=== PATIENT | male | born 1980 | race Caucasian/White ===

== ENCOUNTER 2021-05-07 13:09 | Emergency (ER) | payer MEDICARE, MEDICAID, SELFPAY ==
[2021-05-07 13:30] VITALS: BP 144/97; PULSE 76; TEMP 37.4; O2SAT 98
--- NOTE | 2021-05-07 13:45 | DI.CT_ITS ---
Exam(s) CT HEAD WO EXAM: CT HEAD WO CLINICAL HISTORY: fall/head injury. TECHNIQUE: Imaging Protocol: Axial computed tomography images with coronal and sagittal reformatted images were created and reviewed COMPARISON: No exams were available for comparison FINDINGS: Ventricles and Extra axial spaces: Normal in size and morphology for the patient's age. Hemorrhage: None. Cerebral parenchyma: Normal. The patient has a ventriculoperitoneal shunt which enters the calvarium in the posterior right parietal bone. The tip is seen in the left alvarez radiata. Ventricular size is within normal limits. Midline shift: None. Brainstem/Cerebellum: Normal. Calvarium: Normal. There is an old nasal bone fracture. Visualized Paranasal sinuses/Mastoids: Clear. Soft Tissues: Unremarkable. IMPRESSION: 1. No acute intracranial process. 2. Results of this exam have been verbally communicated with provider. RADIATION DOSE DELIVERED: 788.21mGy.cm Total DLP DATA REPOSITORY: All CT scans at this facility are submitted to the National Radiology Data Registry (NRDR) Dose Index Registry (DIR) with the [employer] (ACR). RADIATION OPTIMIZATION: All CT scans at this facility use at least one of these dose optimization te chniques: automated exposure control; mA and/or kV adjustment per patient size (includes targeted exa ms where dose is matched to clinical indication); or iterative reconstruction.
--- NOTE | 2021-05-07 13:53 | W.ED.GENAD ---
Discharge Plan Disposition Patient Disposition: HOME Condition: Stable Discharge Details Clinical Impression: Head injury, Neck pain Primary Care Provider: Unknown,Unknown ED Provider: Codey Reyes Discharge Instructions Instructions: Head Injury (ED), Neck Pain (ED) Additional Instructions: CT imaging and x-ray does not reveal any obvious emergent process. [id number] Tylenol as directed for discomfort. Cool and/or warm compresses every 2 hours for 20 minutes. Gentle stretching as tolerated. Please watch for new or worsening symptoms and return to the ER for any concerns. Otherwise I would recommend reaching out to your primary care provider tomorrow to discuss your ER visit need for outpatient reevaluation. Discharge Data Discharge Date/Time-TO BE ENTERED AT DEPARTURE: 05/07/21 16:34 Medical Decision Making 41-year-old gentleman with history of TBI presents status post mechanical slip and fall striking the top of his head, now with a dull global headache. No LOC. He also reports neck pain, clinically cleared per the Nexus criteria, no clear indication for imaging. Shoulder examination bilaterally unremarkable. Patient is most concerned to his head, although low mechanism a low suspicion for acute renal process, patient would like to move forward with CT imaging. CT imaging of the head is unremarkable per radiology. Discussed findings with patient and caretaker grounds. At this time patient states that he is now concerned more about his neck and would like to proceed with an x-ray. Although extremely low suspicion for acute cervical trauma, will obtain x-ray. X-ray read by radiology as negative. Discussed x-ray findings with patient and caretaker grounds. Patient is relieved. He remains neurologically intact, no additional concerns or complaints. He was offered Tylenol but declines, states he does not want to take any medications. Prefer to go home and take a warm shower. Standard discharge and return precautions provided This documentation was generated using [employer]zillaation system, please disregard any oddities of phrase or misspellings. Imaging Data Radiologic Study: Attestation: I personally reviewed and interpreted this imaging study as follows: Imaging: CT Scan Radiologist's impression: Exam(s) CT HEAD WO EXAM: CT HEAD WO CLINICAL HISTORY: fall/head injury. TECHNIQUE: Imaging Protocol: Axial computed tomography images with coronal and sagittal reformatted images were created and reviewed COMPARISON: No exams were available for comparison FINDINGS: Ventricles and Extra axial spaces: Normal in size and morphology for the patient's age. Hemorrhage: None. Cerebral parenchyma: Normal. The patient has a ventriculoperitoneal shunt which enters the calvarium in the posterior right parietal bone. The tip is seen in the left alvarez radiata. Ventricular size is within normal limits. Midline shift: None. Brainstem/Cerebellum: Normal. Calvarium: Normal. There is an old nasal bone fracture. Visualized Paranasal sinuses/Mastoids: Clear. Soft Tissues: Unremarkable. IMPRESSION: 1. No acute intracranial process. 2. Results of this exam have been verbally communicated with provider. Radiologic Study #2: Attestation: I personally reviewed and interpreted this imaging study as follows: Imaging: X-Ray Radiologist's impression: Exam(s) XR CERVICAL SP FERMIN TRAUMA 2-3V EXAM: XR CERVICAL SP FERMIN TRAUMA 2-3V CLINICAL HISTORY: fall/pain. TECHNIQUE: 2D digital imaging was performed. COMPARISON: No exams were available for comparison FINDINGS: BONES: No fracture or destructive lesion. Vertebral bodies are unremarkable. DISKS: Degenerative changes are seen in the mid and lower cervical spine. ALIGNMENT: There is straightening of the normal cervical lordosis. The odontoid and atlantoaxial articulations are normal. SOFT TISSUE: The patient has a ventriculoperitoneal shunt. The lung apices are clear. IMPRESSION: No acute fractures or subluxations in the cervical spine. HPI General Mode of arrival: ambulatory. Date/Time Provider Initiated Documentation: 05/07/21 13:11. Limitations to Documentation: no limitations. Information obtained by: patient (And caretaker grounds). HPI Narrative: This is a 41-year-old gentleman, past medical history of TBI, presents with a caretaker grounds for evaluation of head injury status post mechanical slip and fall just prior to arrival at the [facility]. Patient states that he struck the top of his head on the wall, denies LOC. He does report a dull global headache, neck pain worse on the left side, and bilateral shoulder pain. He denies visual changes, numbness, tingling, weakness, any other injury, nausea or vomiting. He has not taken any medications for his symptoms. No additional concerns or complaints at this time. Related Data Allergies Allergy/AdvReac Type Severity Reaction Status Date / Time No Known Allergies Allergy Unverified 05/07/21 13:37 General Stated Complaint: HeadInjury AJIT: 4 Review of Systems Constitutional Constitutional: Denies headache(s) Eyes Eyes: Denies change in vision ENT Ears, Nose, Mouth, and Throat: Denies headache(s) and Reports neck pain Gastrointestinal Gastrointestinal: Denies nausea and Denies vomiting Musculoskeletal Musculoskeletal: Denies back pain, Denies arthralgias, Reports neck pain, Denies numbness, Reports stiffness and Denies tingling Neurologic Neurologic: Denies headache(s), Denies numbness and Denies tingling [facility] Social History Smoking/Tobacco Use Status: Never Smoking risk assessment performed?: Yes Alcohol Intake: never Drug use: Never Substance use type: does not use Do you feel safe at home: Yes Do you feel safe in your relationship?: Yes Exam Const General: cooperative, healthy appearing, comfortable and no acute distress Orientation: alert, awake and oriented x3 HENMT Head: normal to inspection, no palpable skull fracture, normocephalic and atraumatic Ears: external ears normal, TM's normal bilaterally and EAC's normal Face and sinus: normal facial exam Mouth: moist mucous membranes Throat: posterior oropharynx normal Eyes General: appearance normal, both eyes and all related structures Alignment and Position: alignment normal Periorbital: periorbital findings normal Eyelids: eyelids normal Conjunctivae: conjunctivae normal Sclera: sclerae normal Pupils: PERRL EOM: EOM intact bilaterally Direct ophthalmoscopy: normal light reflex Neck Neck: normal visual inspection, full ROM, trachea midline, supple and tender Other: Diffuse mild paravertebral discomfort worse on the left. No midline point tenderness. Resp Effort & Inspection: normal respiratory effort and able to speak in complete sentences Auscultation: clear to auscultation bilaterally Cardio Rate: regular rate Rhythm: regular rhythm Back/Spine/Pelvis Back: No back tenderness Skin General skin exam: no rashes or lesions noted Neuro General: patient alert, patient awake, patient oriented x3, moves all extremities and no focal motor deficits Cognition: normal cognition Speech: speech normal Gait: normal gait Motor: muscle tone normal throughout Sensory Exam: no sensory deficits noted Extrem General: normal to inspection, full ROM and capillary refill normal Psych Appearance: grossly normal Mental Status: mental status grossly normal Course Vital Signs Vital signs: Vital Signs Temperature 37.4 C 05/07/21 13:30 Pulse 76 05/07/21 13:30 Blood Pressure 144/97 H 05/07/21 13:30 Pulse Oximetry 98 05/07/21 13:30 Temperature 37.4 C 05/07/21 13:30 Temperature Source Temporal Artery Scan 05/07/21 13:30 Pulse 76 05/07/21 13:30 Respiratory Effort Non-Labored 05/07/21 13:34 Respiratory Depth Normal 05/07/21 13:34 Respiratory Pattern Normal 05/07/21 13:34 Blood Pressure 144/97 H 05/07/21 13:30 Blood Pressure Position Sitting 05/07/21 13:30 Pulse Oximetry 98 05/07/21 13:30 Oxygen Delivery Method Room Air 05/07/21 13:30 Oxygen Flow Rate 0 05/07/21 13:30 Pain Level 2 05/07/21 13:30
--- NOTE | 2021-05-07 13:55 | NUR.NOTE ---
unable to get med list from provider and caregiver does not have it on them.
--- NOTE | 2021-05-07 14:45 | DI.RAD_ITS ---
Exam(s) XR CERVICAL SP FERMIN TRAUMA 2-3V EXAM: XR CERVICAL SP FERMNI TRAUMA 2-3V CLINICAL HISTORY: fall/pain. TECHNIQUE: 2D digital imaging was performed. COMPARISON: No exams were available for comparison FINDINGS: BONES: No fracture or destructive lesion. Vertebral bodies are unremarkable. DISKS: Degenerative changes are seen in the mid and lower cervical spine. ALIGNMENT: There is straightening of the normal cervical lordosis. The odontoid and atlantoaxial art iculations are normal. SOFT TISSUE: The patient has a ventriculoperitoneal shunt. The lung apices are clear. IMPRESSION: No acute fractures or subluxations in the cervical spine. DATA REPOSITORY: RADIATION DOSE DELIVERED:
== END 2021-05-07 16:34 | disposition home or self-care (01) ==
PROVIDERS: Emergency Provider Physician Assistant
DX: S09.8XXA Other specified injuries of head, initial encounter (principal); M54.2 Cervicalgia; W01.198A Fall on same level from slipping, tripping and stumbling with subsequent striking against other object, initial encounter
CPT/HCPCS: 99284; 70450; 72040; 99283

== ENCOUNTER 2021-11-16 12:10 | Emergency (ER) | payer MEDICARE, MEDICAID, SELFPAY ==
[2021-11-16] VITALS (16 sets, daily range): BP systolic 129–153; BP diastolic 85–99; PULSE 64–77; RESP 18; TEMP 36.7–36.9; O2SAT 97–100
--- NOTE | 2021-11-16 12:15 | DI.CT_ITS ---
Exam(s) CT HEAD CERVICAL SPINE WO EXAM: CT HEAD CERVICAL SPINE WO CLINICAL HISTORY: seizure then fell down hill. TECHNIQUE: Imaging Protocol: Axial computed tomography images with coronal and sagittal reformatted images were created and reviewed COMPARISON: CT CT HEAD WO from 05/07/2021 FINDINGS: Head CT Ventricles and Extra axial spaces: Normal in size and morphology for the patient's age. Hemorrhage: None. Cerebral parenchyma: Normal. The PT shunt tubing unchanged in position. Midline shift: None. Brainstem/Cerebellum: Normal. Calvarium: Defect right parietal skull through which BP shunt tubing enters. Small chronic defect hi gh right frontal region. Visualized Paranasal sinuses/Mastoids: Clear. Bones: Old nasal fractures. Cervical Spine CT BONES: Vertebral body heights are maintained. Alignment is normal. There is no evidence of acute frac ture. Degenerative disc changes and facet degenerative changes are seen at C4-5 through C6-7. . SOFT TISSUES: No paraspinal hematoma. The airway appears intact. Right-sided [employer] shunt tubing. IMPRESSION: Head CT: No acute abnormality.Ventriculoperitoneal shunt, unchanged in position. C-spine CT: Degenerative changes, no acute abnormality. RADIATION DOSE DELIVERED: 1,523.54mGy.cm Total DLP DATA REPOSITORY: All CT scans at this facility are submitted to the National Radiology Data Registry (NRDR) Dose Index Registry (DIR) with the [employer] (ACR). RADIATION OPTIMIZATION: All CT scans at this facility use at least one of these dose optimization te chniques: automated exposure control; mA and/or kV adjustment per patient size (includes targeted exa ms where dose is matched to clinical indication); or iterative reconstruction.
--- NOTE | 2021-11-16 12:28 | ED.GENADUL_ITS ---
Discharge Plan Disposition Patient Disposition: HOME Condition: Stable Discharge Details Clinical Impression: Breakthrough seizure, Fall, Acute head trauma, Traumatic injury of neck Primary Care Provider: Unknown,Unknown ED Provider: Jossie Zamora Home Meds and New Rx's Prescriptions: No Action prazosin 1 mg Capsule 1 mg PO DAILY 0RF zonisamide 100 mg Capsule 300 mg PO TID 0RF ergocalciferol (vitamin D2) [Vitamin D2] 1,250 mcg (50,000 unit) Capsule 1,250 mcg PO DIRECTED 0RF Rx Instructions: twice a week vitamin E 400 unit Capsule 400 unit PO DAILY 0RF tinidazole 500 mg Tablet 2,000 mg PO DAILY 0RF ICaps 3,927-2-282-75 [id number]-unit Tablet Extended Release 1 tab PO DAILY 0RF alpha lipoic acid-biotin 300 mg- 333 mcg Capsule 1 cap PO BID 0RF cannabidiol 100 mg/mL Solution PO TID 0RF Discharge Instructions Instructions: Head Injury (ED), Recurrent Seizures in Adults (ED) Additional Instructions: Imaging is reassuring today, no acute abnormalities. You will likely be sore from the fall and have muscular discomfort over the next few days. Please encourage hydration, gentle stretching. You may use Tylenol or Ibuprofen for discomfort. Heat or ice. Please call primary care to schedule appointment in one week for reevaluation after fall and to discuss your breakthrough seizures. If you develop increased pain, fevers/chills, weakness, sensation changes, confusion or othre new/worsening symptoms please seek care urgently once again. Discharge Data Discharge Date/Time-TO BE ENTERED AT DEPARTURE: 11/16/21 14:21 Medical Decision Making Patient is a pleasant 41-year-old male, brought in via EMS, with chief complaint of seizure and fall downhill. Patient was reported to have a witnessed seizure at the top of the hill when he fell backwards striking his head falling down a hill. Patient reports that initially he had a headache, is now primarily concerned about neck and back pain. No nausea or vomiting. Patient was given intranasal midazolam. Patient reports that he is currently feeling slightly tired which is difficult for him in the postictal period. However, he continues to endorse neck and back pain with a fall. Head is improved. Patient was collared by EMS prior to arrival. Patient denies any numbness or tingling. Is not noticed any weakness. Was not incontinent. Patient daycare provider is at bedside, [place]. He reports that the health is at a significant grade and the patient was standing facing up the hill and fell backwards striking his head. He denies any missed dose of medication. He has his new medications with him. Feels that the patient is back to his baseline. On exam, patient appears nontoxic. He is collared and immobilized. He does have some posterior head pain on palpation. He does have nonfocal C-spine tenderness as well. No midline thoracic discomfort. Does have lumbar spine pain but patient reports that this is chronic and unchanged. No abdominal discomfort. He does have pain with lateral compression of the chest wall but this too sounds to be chronic in nature. No saddle paresthesias. 5 of 5 strength in all extremities. Pulses in all extremities. Patient does have baseline cognitive delay, after history is slightly limited. I am concerned given the mechanism as well as the concern discomfort for potential fracture, particularly in C-spine based on tenderness, ribs. His mechanism also has any concern for head injury. Will obtain CT scan baseline labs. Will give IV Tylenol to help with discomfort. Ultrasound guidance IV was placed by myself in right AC. FINDINGS: Head CT Ventricles and Extra axial spaces: Normal in size and morphology for the patient's age. Hemorrhage: None. Cerebral parenchyma: Normal. The PT shunt tubing unchanged in position. Midline shift: None. Brainstem/Cerebellum: Normal. Calvarium: Defect right parietal skull through which BP shunt tubing enters.? Small chronic defect high right frontal region. Visualized Paranasal sinuses/Mastoids: Clear. Bones: Old nasal fractures. Cervical Spine CT BONES: Vertebral body heights are maintained. Alignment is normal. There is no evidence of acute fracture. Degenerative disc changes and facet degenerative changes are seen at C4-5 through C6-7.? . SOFT TISSUES: No paraspinal hematoma. The airway appears intact. Right-sided SHIFT COORDINATOR shunt tubing. IMPRESSION: Head CT: No acute abnormality.Ventriculoperitoneal shunt, unchanged in position. C-spine CT: Degenerative changes, no acute abnormality. FINDINGS: CHEST: Soft tissues: Bilateral gynecomastia.? Severe shows cyst lower left lateral chest wall. Tracheobronchial tree: Patent where visualized. Mediastinum and Shaunna: No dominant adenopathy or fluid collection. Pulmonary parenchyma: No consolidation or dominant measurable mass. Pleura: No effusion or pneumothorax. Lymph nodes: Within normal limits. Aorta: Thoracic portion non-dilated. Heart: Normal size. Bones: Unremarkable for age.? No evidence of rib or spine fracture.? No lytic or blastic lesions. ABDOMEN: Liver: Normal density. No measurable mass. Gallbladder and biliary tract: No radiodense calculus or dilation. Pancreas: Normal density, no abnormal calcifications or inflammatory process. Spleen: Normal. Kidneys: Normal size, contour and axis. No radiodense stones or obstructive uropathy. No masses seen. Adrenal glands: No masses seen. Aorta: Abdominal portion non-dilated. Lymph nodes: Within normal limits. Soft tissues: Unremarkable.? SHIFT COORDINATOR shunt tubing. PELVIS:? Bladder: Distended. no gross wall thickening. ? No calcification or mass. Bowel: No obstruction or bowel wall thickening. Peritoneal cavity: No ascites, collection or mesenteric inflammatory response. Bones: Bilateral L5 spondylolysis which appears chronic.? Slight spondylolisthesis.? Disc spaces well maintained.? Small endplate osteophytes throughout the lumbar spine.? Reproductive organs: Within normal limits. IMPRESSION: No acute abnormality in the chest, abdomen or pelvis..? Discussed findings with patient and chiropractic care. He reports he is feeling well. Collar removed, no midline tenderness, full ROM without pain. Spoke with patients aunt Jordyn, who is his gardian, . We discussed current condition, imaging, break through seizure. She advised that patient is followed very closely by his PCP for his seizures. Not unusual to have breakthrough seizure, has not had one in the past few weeks. They will continue to monitor him closely at home. Discussed brain rest. Encouraged hydration. Return precautions discussed. All of their quesitons and concerns were addressed,t hey are in agreement with this plan. HPI General Date/Time Provider Initiated Documentation: 11/16/21 12:13 . Limitations to Documentation: no limitations . Information obtained by: patient, family (nursing home director), EMS and RN notes reviewed . History of Present Illness 41 year old M presents to the emergency department with the chief complaint of seizure, fall with head injury, described as moderate, Quality is described as aching, and is localized to the head. Patient reports no radiation. Patient started experiencing this minute(s) and it has been now resolved (feeling improved, seizure resolved- patient given IN midazolam). improves with No relieving factors improve symptom(s), No exacerbating factors reported . Patient notes no other symptoms. and headaches; denies confusion, chest pain, fever/chills, loss of appetite, nausea/vomiting, rash, shortness of breath and weakness. Patient did receive the following treatments prior to arrival, none Related Data Home Medications Medication Instructions Recorded Confirmed alpha lipoic acid 300 mg-biotin 1 cap PO BID 11/16/21 11/16/21 333 mcg capsule cannabidiol 100 mg/mL oral solution mg PO TID 11/16/21 ergocalciferol (vitamin D2) 1,250 1,250 mcg PO DIRECTED 11/16/21 11/16/21 mcg (50,000 unit) capsule (Vitamin D2) prazosin 1 mg capsule 1 mg PO DAILY 11/16/21 11/16/21 tinidazole 500 mg tablet 2,000 mg PO DAILY 11/16/21 11/16/21 [id number]-fqmicoc-min 1 tab PO DAILY 11/16/21 11/16/21 3,300 unit-5 mg-200mg-75 unit tablet ER (ICaps) vitamin E 400 unit capsule 400 unit PO DAILY 11/16/21 11/16/21 zonisamide 100 mg capsule 300 mg PO TID 11/16/21 11/16/21 Allergies Allergy/AdvReac Type Severity Reaction Status Date / Time clonidine Allergy Unverified 11/16/21 14:04 General Stated Complaint: Trauma AJIT: 3 Review of Systems Constitutional Constitutional: Reports as per HPI, Denies chills, Denies fever(s), Denies frequent falls, Reports headache(s) and Denies weakness Eyes Eyes: Reports as per HPI, Denies blurry vision, Denies change in vision, Denies loss of vision and Denies photophobia ENT Ears, Nose, Mouth, and Throat: Denies vertigo, Reports headache(s) and Denies neck pain Cardiovascular Cardiovascular: Reports as per HPI, Denies chest pain, Denies lightheadedness, Denies radiating jaw, neck or arm pain, Denies dyspnea and Denies dyspnea on exertion Respiratory Respiratory: Reports as per HPI, Denies chest congestion, Denies cough, Denies dyspnea, Denies dyspnea on exertion, Denies stridor and Denies wheezing Gastrointestinal Gastrointestinal: Reports as per HPI, Denies abdominal pain, Denies change in bowel habits, Denies nausea and Denies vomiting Genitourinary Genitourinary: Reports system reviewed and no additional complaints, except as documented (denies change in urinary habits) Musculoskeletal Musculoskeletal: Reports as per HPI, Denies back pain, Denies myalgias, Denies muscle cramps, Denies neck pain and Denies numbness Integumentary/Breasts Skin/Breast: Reports as per HPI and Denies rash Neurologic Neurologic: Reports as per HPI, Denies abnormal speech, Denies confusion, Denies vertigo, Denies frequent falls, Reports headache(s), Denies localized weakness, Denies loss of vision, Denies numbness, Reports convulsions, Denies sensory deficit and Denies weakness Psychiatric Psychiatric: Denies confusion Allergic/Immunologic Allergic/Immunologic: Denies wheezing PFSH All Active Problems (Updated 11/16/21 @ 14:08 by KOURTNEY Michael) Head injury (Acute) Neck pain (Acute) Breakthrough seizure (Acute) Fall (Acute) Acute head trauma (Acute) Traumatic injury of neck (Acute) Social History Smoking/Tobacco Use Status: Never Smoking risk assessment performed?: Yes Alcohol Intake: never Drug use: Never Substance use type: does not use Do you feel safe at home: Yes Do you feel safe in your relationship?: Yes Exam Const General: cooperative, healthy appearing, uncomfortable, no acute distress, well developed and well groomed Nutritional Appearance: average body habitus and well nourished Orientation: alert, awake and oriented x3 HENMT Head: normal to inspection, no palpable skull fracture, normocephalic and atraumatic Ears: hearing grossly normal bilaterally, external ears normal and TM's normal bilaterally General nose exam: external nose normal Mouth: oral mucosae normal and moist mucous membranes Throat: posterior oropharynx normal Eyes General: appearance normal, both eyes and all related structures Alignment and Position: alignment normal Periorbital: periorbital findings normal Eyelids: eyelids normal Sclera: sclerae normal Cornea: corneas normal Pupils: PERRL EOM: EOM intact bilaterally Neck Neck: normal visual inspection, full ROM, no lymphadenopathy and no meningeal signs Resp Effort & Inspection: normal respiratory effort, able to speak in complete sentences and no respiratory distress Auscultation: clear to auscultation bilaterally, no rales, no rhonchi and no wheezes Cardio Rate: regular rate Rhythm: regular rhythm Heart Sounds: S1 normal and S2 normal GI Inspection: normal to inspection and non-distended Palpation: soft, no hepatosplenomegaly, not firm, no guarding, not rigid and nontender Percussion: normal to percussion Auscultation: normal bowel sounds Back/Spine/Pelvis Cervical Spine: normal cervical lordosis and cervical ROM normal Skin General skin exam: no rashes or lesions noted Neuro General: patient alert, patient awake and patient oriented x3 Cranial Nerves: CN's II-XI intact bilaterally Cognition: normal cognition Speech: speech normal Gait: normal gait Motor: muscle tone normal throughout, strength 5/5 throughout, no pronator drift, no movement abnormalities noted and no fasciculations Sensory Exam: no sensory deficits noted Coordination: [id number] test normal and [id number] test normal Extrem General: normal to inspection, capillary refill normal, no pedal edema and no calf tenderness Psych Appearance: grossly normal and well kempt Mental Status: mental status grossly normal Speech and Movement: speech and movement normal Course Vital Signs Vital signs: Vital Signs Temperature 36.9 C 11/16/21 12:15 Pulse 68 11/16/21 12:15 Respiratory Rate 18 11/16/21 12:15 Blood Pressure 141/91 H 11/16/21 12:15 Pulse Oximetry 100 11/16/21 12:15 Temperature 36.9 C 11/16/21 12:15 Temperature Source Temporal Artery Scan 11/16/21 12:15 Pulse 68 11/16/21 12:15 Respiratory Rate 18 11/16/21 12:15 Blood Pressure 141/91 H 11/16/21 12:15 Blood Pressure Position Supine 11/16/21 12:15 Pulse Oximetry 100 11/16/21 12:15 Oxygen Delivery Method Room Air 11/16/21 12:15 Oxygen Flow Rate 0 11/16/21 12:15
[2021-11-16 12:53] LABS: Abs Immature Grans 0.02 10^3/uL (0.0-0.06); Absolute Basophil Count 0.01 10^3/uL (0.0-0.2); Absolute Lymphocyte Count 1.82 10^3/uL (1.2-3.4); Absolute Monocyte Count 0.73 10^3/uL (0.1-0.8); Basophils % 0.2; HCT 44.1 % (40.0-50.0); Immature Grans % 0.3; Lymphocytes % 27.7; MCH 31.4 pg (27.0-33.0); MCV 92.3 fL (80-95); MPV 8.8 fL (8.0-11.0); Monocytes % 11.1; Neutrophils % 60.7; Platelet Count 317 10^3/uL (130-400); RBC 4.78 10^6/uL (4.36-5.78); RDW 11.9 % (11.8-14.1); WBC 6.58 10^3/uL (4.4-10.8)
--- NOTE | 2021-11-16 13:09 | DI.CT_ITS ---
Exam(s) CT CHEST/ABD/PEL W EXAM: CT CHEST/ABD/PEL W CLINICAL HISTORY: seizure then fell down hill. TECHNIQUE: Imaging Protocol: Axial computed tomography images with coronal and sagittal reformatted images were created and reviewed CONTRAST MATERIAL: Intravenous: Omnipaque 350 Contrast volume:100 ml Oral: no COMPARISON: No exams were available for comparison FINDINGS: CHEST: Soft tissues: Bilateral gynecomastia. Severe shows cyst lower left lateral chest wall. Tracheobronchial tree: Patent where visualized. Mediastinum and Shaunna: No dominant adenopathy or fluid collection. Pulmonary parenchyma: No consolidation or dominant measurable mass. Pleura: No effusion or pneumothorax. Lymph nodes: Within normal limits. Aorta: Thoracic portion non-dilated. Heart: Normal size. Bones: Unremarkable for age. No evidence of rib or spine fracture. No lytic or blastic lesions. ABDOMEN: Liver: Normal density. No measurable mass. Gallbladder and biliary tract: No radiodense calculus or dilation. Pancreas: Normal density, no abnormal calcifications or inflammatory process. Spleen: Normal. Kidneys: Normal size, contour and axis. No radiodense stones or obstructive uropathy. No masses seen. Adrenal glands: No masses seen. Aorta: Abdominal portion non-dilated. Lymph nodes: Within normal limits. Soft tissues: Unremarkable. FORENSIC INVESTIGATOR shunt tubing. PELVIS: Bladder: Distended. no gross wall thickening. No calcification or mass. Bowel: No obstruction or bowel wall thickening. Peritoneal cavity: No ascites, collection or mesenteric inflammatory response. Bones: Bilateral L5 spondylolysis which appears chronic. Slight spondylolisthesis. Disc spaces well maintained. Small endplate osteophytes throughout the lumbar spine. Reproductive organs: Within normal limits. IMPRESSION: No acute abnormality in the chest, abdomen or pelvis.. RADIATION DOSE DELIVERED: 1,079.26mGy.cm Total DLP DATA REPOSITORY: All CT scans at this facility are submitted to the National Radiology Data Registry (NRDR) Dose Index Registry (DIR) with the [employer] ([employer]). RADIATION OPTIMIZATION: All CT scans at this facility use at least one of these dose optimization te chniques: automated exposure control; mA and/or kV adjustment per patient size (includes targeted exa ms where dose is matched to clinical indication); or iterative reconstruction.
[2021-11-16 13:14] LABS: ALT 34 U/L (16-63); AST 23 U/L (15-37); Albumin 3.9 g/dL (3.4-5.0); Alkaline Phosphatase 88 U/L (46-116); Anion Gap 6.4 mmol/L (3-11); BUN 8 mg/dL (7-18); Bilirubin, Total 0.3 mg/dL (0.2-1.0); CO2 27.6 mmol/L (21.0-32.0); CREATININE 0.9 mg/dL (0.70-1.30); Calcium 8.4 mg/dL (8.5-10.1); Chloride 102 mmol/L (98-107); Creatine Kinase 109 U/L (39-308); Glucose 88 mg/dL (74-106); Magnesium 2.4 mg/dL (1.8-2.4); Potassium 4.3 mmol/L (3.5-5.1); Sodium 136 mmol/L (136-145); TSH (W/Ref FT4) 2.48 uIU/mL (0.36-3.74); Total Protein 7.5 g/dL (6.4-8.2)
[2021-11-16] MEDS: Lactated Ringers 1,000 ML 1000 ML IV (13:20)
[2021-11-16] MEDS: Normal Saline Flush 10 ML SYR IVP (13:20)
[2021-11-16] MEDS: ACETAMINOPHEN 1,000 MG/100 ML BTL 400 MG IVPB (13:20)
[2021-11-16] MEDS: Omnipaque 350 MG/ML 100 ML BTL IJ (13:24)
[2021-11-16 14:00] LABS: Bilirubin Negative (Negative); Blood Negative (Negative); Clarity Clear (Clear); Glucose Negative (Negative); Ketones Negative (Negative); Leukocyte Esterase Negative (Negative); Nitrite Negative (Negative); Specific Gravity <= 1.005 (1.005-1.025); Urobilinogen 0.2 EU/dL (Up TO 0.2)
== END 2021-11-16 14:21 | disposition home or self-care (01) ==
PROVIDERS: Emergency Provider Physician Assistant
DX: G40.909 Epilepsy, unspecified, not intractable, without status epilepticus (principal); S09.8XXA Other specified injuries of head, initial encounter; S19.89XA Other specified injuries of other specified part of neck, initial encounter; W17.81XA Fall down embankment (hill), initial encounter
CPT/HCPCS: 36415; 74177; 80053; 82550; 96361; 96374; 99285; 70450; 71260; 72125; 81003; 83735; 84443; 85025; 99284; J0131; J3490

== ENCOUNTER → 2022-03-20 13:00 | Outpatient (CLI) | payer MEDICARE, MEDICAID, SELFPAY ==
--- NOTE | 2022-03-20 | DI.RAD_ITS ---
Exam(s) XR RIBS LT W PA LAT CHEST EXAM: XR RIBS LT W PA LAT CHEST CLINICAL HISTORY: PATIENT FELL STRIKING LEFT SIDE OF RIBS, CONCERN FOR UNDERLYING FX TECHNIQUE: COMPARISON: No exams were available for comparison FINDINGS: PA and lateral chest and three views of the left ribs were obtained. Note is made of ventriculoperit arcos shunt. I suspect this is fractured at the level of the diaphragm. Lungs are clear. Cardiac s ize is within normal limits. No rib fracture identified. IMPRESSION: No evidence of acute process. RADIATION DOSE DELIVERED: Total DLP
--- NOTE | 2022-03-20 13:25 | DI.RAD_ITS ---
Exam(s) XR SHOULDER RT COMPLETE 2+V EXAM: XR SHOULDER RT COMPLETE 2+V CLINICAL HISTORY: PAIN IN RIGHT SHOULDER TECHNIQUE: COMPARISON: No exams were available for comparison FINDINGS: Five views were obtained. Ventricular peritoneal shunt with probable shunt discontinuity in the uppe r thorax. No evidence of acute bony fracture or dislocation. IMPRESSION: RADIATION DOSE DELIVERED: Total DLP
--- NOTE | 2022-03-20 13:50 | DI.VRAD_ITS ---
PROCEDURE INFORMATION: Exam: XR Right Shoulder Exam date and time: 03/20/2022 1:20 PM Age: 41 years old Clinical indication: Pain; Shoulder; Right TECHNIQUE: Imaging protocol: Radiologic exam of the Right shoulder. Views: 2 or more views. COMPARISON: CT CHEST/ABD/PEL W 11/16/2021 1:07 PM FINDINGS: Tubes, catheters and devices: Shunt tubing overlies the right chest and soft tissues of the right neck Bones/joints: There is no evidence of acute fracture.There is no evidence of malalignment or dislocation. Soft tissues: Normal. IMPRESSION: There is no evidence of acute fracture.There is no evidence of malalignment or dislocation. Dictated and Authenticated by: Chidi Mercado MD. Ordering:MANASA Naidu MD
--- NOTE | 2022-03-20 13:56 | DI.VRAD_ITS ---
PROCEDURE INFORMATION: Exam: XR Left Ribs Exam date and time: 03/20/2022 1:44 PM Age: 41 years old Clinical indication: Injury or trauma; Fall; Blunt trauma (contusions or hematomas); Rib area, left side; Injury details: Patient fell striking left side of ribs, concern for underlying FX TECHNIQUE: Imaging protocol: Radiologic exam of the Left ribs. Views: 2 views. COMPARISON: CT CHEST/ABD/PEL W 11/16/2021 1:07 PM FINDINGS: Bones/joints: Normal. Soft tissues: Normal. IMPRESSION: No acute findings. PROCEDURE INFORMATION: Exam: XR Chest Exam date and time: 03/20/2022 1:44 PM Age: 41 years old Clinical indication: Injury or trauma; Fall; Blunt trauma (contusions or hematomas); Rib area, left side; Injury details: Patient fell striking left side of ribs, concern for underlying FX TECHNIQUE: Imaging protocol: Radiologic exam of the chest. Views: 2 views. COMPARISON: CT CHEST/ABD/PEL W 11/16/2021 1:07 PM FINDINGS: Tubes, catheters and devices: Shunt tubing overlies the right chest. Lungs: Unremarkable. No consolidation. Pleural spaces: Unremarkable. No pleural effusion. No pneumothorax. Heart/Mediastinum: Unremarkable. No cardiomegaly. Bones/joints: Unremarkable. IMPRESSION: No acute process Dictated and Authenticated by: Chidi Mercado MD. Ordering:MANASA Naidu MD
== END ==
PROVIDERS: Visit Provider Physician Assistant Medical
DX: M25.511 Pain in right shoulder (principal); R07.81 Pleurodynia; Z98.2 Presence of cerebrospinal fluid drainage device
CPT/HCPCS: 71046; 71100; 73030

== ENCOUNTER 2022-03-20 13:36 | Outpatient (REF) | payer MEDICARE, MEDICAID, SELFPAY ==
[2022-03-20 16:24] LABS: Abs Immature Grans 0.02 10^3/uL (0.0-0.06); Absolute Lymphocyte Count 1.97 10^3/uL (1.2-3.4); Absolute Monocyte Count 0.77 10^3/uL (0.1-0.8); Absolute Neutrophil Count 5.82 10^3/uL (1.2-6.7); HCT 44.4 % (40.0-50.0); Immature Grans % 0.2; MCH 30.7 pg (27.0-33.0); MCHC 33.8 % (32.0-36.0); MCV 91 fL (80-95); MPV 9.4 fL (8.0-11.0); Neutrophils % 67.8; Platelet Count 318 10^3/uL (130-400); RBC 4.89 10^6/uL (4.36-5.78); RDW-SD 39.8 fL; WBC 8.58 10^3/uL (4.4-10.8)
[2022-03-20 16:45] LABS: ALT 26 U/L (16-63); AST 17 U/L (15-37); Albumin 3.6 g/dL (3.4-5.0); Alkaline Phosphatase 99 U/L (46-116); Anion Gap 7.8 mmol/L (3-11); BUN 11 mg/dL (7-18); Bilirubin, Total 0.2 mg/dL (0.2-1.0); CO2 28.2 mmol/L (21.0-32.0); CREATININE 0.9 mg/dL (0.70-1.30); Calcium 8.7 mg/dL (8.5-10.1); Chloride 104 mmol/L (98-107); Glucose 106 mg/dL (74-106); Potassium 4.2 mmol/L (3.5-5.1); Sodium 140 mmol/L (136-145); Total Protein 6.8 g/dL (6.4-8.2)
== END 2022-03-20 13:37 | disposition home or self-care (01) ==
LOC: LBN 13:36
PROVIDERS: Visit Provider Physician Assistant Medical
DX: R55 Syncope and collapse (principal)
CPT/HCPCS: 80053; 85025

== ENCOUNTER 2023-09-05 12:48 | Emergency (ER) | payer MEDICARE, MEDICAID, SELFPAY ==
--- NOTE | 2023-09-05 12:45 | DI.CT_ITS ---
Exam(s) CT HEAD WO EXAM: CT HEAD WO CLINICAL HISTORY: fall. TECHNIQUE: Imaging Protocol: Axial computed tomography images with coronal and sagittal reformatted images were created and reviewed COMPARISON: CT CT HEAD CERVICAL SPINE WO from 11/16/2021 FINDINGS: There are no skull fractures. There is no fluid in the visualized paranasal sinuses. Right parietal entrance KENNEL AIDE shunt distal tip is unchanged in position, across the midline in the left periventricular white matter, unchanged from prior study of October 2021. There is no evidence of intracranial hemorrhage, intra or extra-axial. There is no blood within the ventricular system nor within the basal cisterns. No evidence of infarct. IMPRESSION: As above but no acute intracranial findings. Discussed by phone with ER physician. RADIATION DOSE DELIVERED: 842.09mGy.cm Total DLP DATA REPOSITORY: All CT scans at this facility are submitted to the National Radiology Data Registry (NRDR) Dose Index Registry (DIR) with the [employer] (ACR). RADIATION OPTIMIZATION: All CT scans at this facility use at least one of these dose optimization te chniques: automated exposure control; mA and/or kV adjustment per patient size (includes targeted exa ms where dose is matched to clinical indication); or iterative reconstruction.
[2023-09-05 12:52] VITALS: BP 165/112; PULSE 95; RESP 18; TEMP 36.9; O2SAT 95
--- NOTE | 2023-09-05 13:31 | ED.GENADUL_ITS ---
HPI General Date/Time Provider Initiated Documentation: 09/05/23 12:57 . Limitations to Documentation: no limitations . Information obtained by: patient . HPI Narrative: 43-year-old gentleman with past medical history of TBI, CERTIFIED TECHNICIAN shunt presents for evaluation after fall. Patient states that he slipped on the ice on the stairs and fell and hit his head. He states that he is unsure if he lost consciousness. He reports some soreness. He denies any headache. Denies any visual change. Denies any vomiting. This occurred just prior to arrival. No medications given prior to arrival. He states he does have a history of a CERTIFIED TECHNICIAN shunt, but the shunt is no longer functional. Related Data Home Medications Medication Instructions Recorded Confirmed alpha lipoic acid 300 mg-biotin 1 cap PO BID 11/16/21 11/16/21 333 mcg capsule cannabidiol 100 mg/mL oral solution mg PO TID 11/16/21 ergocalciferol (vitamin D2) 1,250 1,250 mcg PO DIRECTED 11/16/21 11/16/21 mcg (50,000 unit) capsule (Vitamin D2) prazosin 1 mg capsule 1 mg PO DAILY 11/16/21 11/16/21 tinidazole 500 mg tablet 2,000 mg PO DAILY 11/16/21 11/16/21 [id number]-C4-S-U-ylkvwp-mbcalwk-min 1 tab PO DAILY 11/16/21 11/16/21 3,300 unit-5 mg-200mg-75 unit tablet ER (ICaps) vitamin E 268 mg (400 unit) capsule 400 unit PO DAILY 11/16/21 11/16/21 zonisamide 100 mg capsule 300 mg PO TID 11/16/21 11/16/21 Allergies Allergy/AdvReac Type Severity Reaction Status Date / Time clonidine Allergy Unverified 11/16/21 14:04 General Stated Complaint: Fall/Non TraumaCriteria AJIT: 3 Exam Narrative Exam Narrative: Review of Systems: All systems reviewed & are unremarkable except as noted in HPI and below Well-developed, no acute distress NCAT, nontender, no skull deformity Right parietal CERTIFIED TECHNICIAN shunt noted PERRL, normal conjunctiva RRR Unlabored respiratory effort Nondistended abdomen Left shoulder, nontender, full range of motion, no deformity No rashes or lesions. no focal neurologic deficits Appropriate mood and affect Course Vital Signs Vital signs: Vital Signs Temperature 36.9 C 09/05/23 12:52 Pulse 95 H 09/05/23 12:52 Respiratory Rate 18 09/05/23 12:52 Blood Pressure 165/112 H 09/05/23 12:52 Pulse Oximetry 95 09/05/23 12:52 Temperature 36.9 C 09/05/23 12:52 Temperature Source Skin 09/05/23 12:52 Pulse 95 H 09/05/23 12:52 Respiratory Rate 18 09/05/23 12:52 Blood Pressure 165/112 H 09/05/23 12:52 Blood Pressure Position Sitting 09/05/23 12:52 Pulse Oximetry 95 09/05/23 12:52 Oxygen Delivery Method Room Air 09/05/23 12:52 Oxygen Flow Rate 0 09/05/23 12:52 Pain Level 10 09/05/23 12:52 Medical Decision Making Emergent evaluation of head trauma. Initial differential includes contusion, intracranial injury. Concussive syndrome. Patient slipped on ice. No prodromal or preceding symptoms concerning for syncopal episode. Has a normal neurologic exam and no significant signs of trauma. A CT scan was performed. There is no acute traumatic process. He otherwise has a normal examination. Patient is stable for discharge home. Medical Records Medical records reviewed: Yes I reviewed the patient's medical records. Quality:[facility] Health Related Social Needs: No Data to Display [facility] All Active Problems Neck pain (Acute) Head injury (Acute) Social History Smoking/Tobacco Use Status: Never Smoking risk assessment performed?: Yes Alcohol Intake: never Drug use: Never Substance use type: does not use Do you feel safe at home: Yes Do you feel safe in your relationship?: Yes Discharge Plan Disposition Patient Disposition: Home Condition: Stable Discharge Details Clinical Impression: Head injury Primary Care Provider: Unknown,Unknown ED Provider: Connie Suarez Home Meds and New Rx's Prescriptions: No Action prazosin 1 mg Capsule 1 mg PO DAILY zonisamide 100 mg Capsule 300 mg PO TID ergocalciferol (vitamin D2) [Vitamin D2] 1,250 mcg (50,000 unit) Capsule 1,250 mcg PO DIRECTED Rx Instructions: twice a week vitamin E 400 unit Capsule 400 unit PO DAILY tinidazole 500 mg Tablet 2,000 mg PO DAILY ICaps 3,032-2-494-75 btet-ry-wg-unit Tablet Extended Release 1 tab PO DAILY alpha lipoic acid-biotin 300 mg- 333 mcg Capsule 1 cap PO BID cannabidiol 100 mg/mL Solution PO TID Discharge Instructions Instructions: Head Injury (ED) Additional Instructions: may be a little sore, ok to take tylenol or motrin Discharge Data Discharge Date/Time-TO BE ENTERED AT DEPARTURE: 09/05/23 13:45
== END 2023-09-05 13:45 | disposition home or self-care (01) ==
LOC: ER 13:41
PROVIDERS: Emergency Provider Emergency Medicine
DX: M25.512 Pain in left shoulder (principal); M54.9 Dorsalgia, unspecified; R51.9 Headache, unspecified; S09.90XA Unspecified injury of head, initial encounter; W00.1XXA Fall from stairs and steps due to ice and snow, initial encounter
CPT/HCPCS: 99284; 70450; 99283

== ENCOUNTER 2023-12-25 22:00 | Emergency (ER) | payer MEDICARE, MEDICAID, SELFPAY ==
[2023-12-25 21:58] VITALS: BP 134/91; PULSE 82; RESP 18; TEMP 36.6; O2SAT 94
--- NOTE | 2023-12-25 22:00 | DI.CT_ITS ---
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 TECHNIQUE: Imaging Protocol: Axial computed tomography images with coronal and sagittal reformatted images were created and reviewed COMPARISON: CT CT HEAD WO from 09/05/2023 FINDINGS: Ventricles and Extra axial spaces: Ventriculoperitoneal shunt again noted, entering from the right pa rietal lesion and extending across the midline with the tip appearing to project in the region of the left basal ganglia. Findings appear unchanged from prior. Ventricles not dilated. Unchanged in ap pearance from prior. Hemorrhage: None. Cerebral parenchyma: No significant atrophy. Small area low attenuation in the left frontal lobe, a djacent to the ventricle, unchanged. Midline shift: None. Brainstem/Cerebellum: Normal. Calvarium: Craniotomy defects right frontal and right parietal regions. Visualized Paranasal sinuses/Mastoids: Clear. Cerumen in both external auditory canals. IMPRESSION: No acute abnormality.No change in position of ventricular peritoneal shunt. RADIATION DOSE DELIVERED: Total DLP Total DLP DATA REPOSITORY: All CT scans at this facility are submitted to the National Radiology Data Registry (NRDR) Dose Index Registry (DIR) with the [employer] (A[employer]). RADIATION OPTIMIZATION: All CT scans at this facility use at least one of these dose optimization te chniques: automated exposure control; mA and/or kV adjustment per patient size (includes targeted exa ms where dose is matched to clinical indication); or iterative reconstruction.
--- NOTE | 2023-12-25 22:00 | RT.EKG_ITS ---
APPROVED REPORT Exam: Resting ECG Reason for Exam: syncope Patient Location: E HR:68 bpm ECG Measurements Heart Rate 68 AXIS MN 212 P 36 QRSd 119 QRS 54 QT 388 T 25 QTc 415 Conclusion Sinus rhythm...normal P axis, V-rate 60- 99 Prolonged MN interval...MN >210, V-rate 50- 90 Nonspecific intraventricular conduction delay...QRSd >115mS, not LBBB/RBBB no st segment or t wave abnormalities to suggest occlusive mi
--- NOTE | 2023-12-25 22:00 | DI.RAD_ITS ---
Exam(s) XR CHEST 2V PA LATERAL EXAM: XR CHEST 2V PA LATERAL CLINICAL HISTORY: possible seizure, fall TECHNIQUE: 2D digital imaging was performed. Two views. COMPARISON: No exams were available for comparison FINDINGS: Ventriculoperitoneal shunt again noted along the right anterior neck and chest. HEART: Normal size. Aorta: Not dilated. PULMONARY VASCULATURE: Normal. LUNGS: Clear. PLEURAL SPACE: No pleural effusion or pneumothorax. BONE:Unremarkable for age. Soft tissues: Unremarkable. IMPRESSION: No acute abnormality. DATA REPOSITORY: RADIATION DOSE DELIVERED:
--- NOTE | 2023-12-25 22:14 | W.ED.GENAD ---
Discharge Plan Disposition Patient Disposition: Home Condition: Good Discharge Details Clinical Impression: Syncope Primary Care Provider: Unknown,Unknown ED Provider: Iqra Lubin Home Meds and New Rx's Prescriptions: Continued prazosin 1 mg Capsule 1 mg PO DAILY zonisamide 100 mg Capsule 300 mg PO TID ergocalciferol (vitamin D2) [Vitamin D2] 1,250 mcg (50,000 unit) Capsule 1,250 mcg PO DIRECTED Rx Instructions: twice a week vitamin E 400 unit Capsule 400 unit PO DAILY tinidazole 500 mg Tablet 2,000 mg PO DAILY ICaps 3,004-0-890-75 itui-cp-ok-unit Tablet Extended Release 1 tab PO DAILY alpha lipoic acid-biotin 300 mg- 333 mcg Capsule 1 cap PO BID cannabidiol 100 mg/mL Solution PO TID labetalol 100 mg tablet 100 mg PO ONCE carbamazepine 400 mg tablet extended release 12 hr 400 mg PO ONCE risperidone [Risperdal] 3 mg tablet 3 mg PO DAILY lamotrigine [Lamictal XR] 300 mg tablet extended release 24hr 300 mg PO DAILY Discharge Instructions Instructions: Syncope (ED) Additional Instructions: Call your primary care doctor today to schedule an appointment for within the next 48 hours to follow up on your visit today. Discuss your EKG at that visit. Return to the emergency department for new or worsening symptoms including chest pain, difficulty breathing, lightheadedness, vomiting, or if you pass out again. HPI General Mode of arrival: EMS. Date/Time Provider Initiated Documentation: 12/25/23 22:01. Limitations to Documentation: other (developmental delay). Information obtained by: patient, family (roommate), EMS and old records reviewed. 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 Was at his computer playing video games, vision started to 'go blurry' and he fell onto the floor. Roommate called EMS. No seizure activity witnessed by EMS, per EMS roommate did not report any abnormal movements. Patient recalls his vision going dark, does not remember what happened after. Roommate subsequently to bedside (also had developmental delay), reports patient c/o feeling dizzy, then fell backwards. No abnormal movements noted. Unclear how long he was unconscious (most likely minutes). Seemed like he was acting like his usual self when he regained consciousness. Patient reports mild headache and left lower rib/upper abdominal pain, otherwise denies pain or injury. No nasuea, vomiting, weakness, numbness, vertigo, or vision changes. Has not missed any doses of his seizure medications. Otherwise in his usual state of health with no fevers, chills, rash, cough, rhinnorhea, difficulty breathing, chest pain, dysuria, hematuria, or other concerns. Related Data Home Medications Medication Instructions Recorded Confirmed alpha lipoic acid 300 mg-biotin 1 cap PO BID 11/16/21 11/16/21 333 mcg capsule cannabidiol 100 mg/mL oral solution mg PO TID 11/16/21 ergocalciferol (vitamin D2) 1,250 1,250 mcg PO DIRECTED 11/16/21 11/16/21 mcg (50,000 unit) capsule (Vitamin D2) prazosin 1 mg capsule 1 mg PO DAILY 11/16/21 12/26/23 tinidazole 500 mg tablet 2,000 mg PO DAILY 11/16/21 11/16/21 pfqN-A1-H-X-lzocdr-qcnxwhi-min 1 tab PO DAILY 11/16/21 12/26/23 3,300 unit-5 mg-200mg-75 unit tablet ER (ICaps) vitamin E 268 mg (400 unit) capsule 400 unit PO DAILY 11/16/21 11/16/21 zonisamide 100 mg capsule 300 mg PO TID 11/16/21 12/26/23 carbamazepine 400 mg 400 mg PO ONCE 12/26/23 12/26/23 tablet,extended release,12 hr labetalol 100 mg tablet 100 mg PO ONCE 12/26/23 12/26/23 lamotrigine 300 mg tablet,extended 300 mg PO DAILY 12/26/23 12/26/23 release 24 hr (Lamictal XR) risperidone 3 mg tablet (Risperdal) 3 mg PO DAILY 12/26/23 12/26/23 Allergies Allergy/AdvReac Type Severity Reaction Status Date / Time clonidine Allergy Other (See Unverified 12/25/23 22:02 Comment) General Stated Complaint: HeadInjury AJIT: 3 Review of Systems Narrative: see HPI Exam Narrative Exam Narrative: GENERAL: Alert, no acute distress. SKIN: Warm and well perfused. Scattered echymosis on LE (knees and shins) in various stages of healing. Otherwise no rashes, bruises, discolorations or abrasions. HEAD: Atraumatic without edema, discoloration or evidence of trauma. Facial bones without deformities or tenderness. SEWING MACHINE ATTACHMENT TESTER shunt palpable on right. EYES: PERRL. No scleral icterus or conjunctival injection. Subconctival hemmoraghe left eye @4 o'lock. Extraocular muscles intact without nystagmus or diplopia. No proptosis or enophthalmos. NOSE: No discharge, tenderness, laxity. No nasal septal hematoma. MOUTH: No malocclusion or trismus. Moist mucus membranes without blood. Posterior pharynx without erythema or exudate. NECK: Trachea midline. No discolorations or edema. Full pain free ROM. CV: Regular rate and rhythm, Normal s1 and s2. No murmurs, rubs, or gallops. PV: Radial pulses 2+ bilaterally and symmetric. Dorsalis pedis pulses 2+ bilaterally and symmetric. 2+ capillary refill. No extremity edema. CHEST: No abrasions or ecchymosis. Chest symmetric with respirations. Mild left lateral lower chest wall tenderness. No crepitus. No step offs. Lungs are clear to auscultation bilaterally. ABDOMEN: No ecchymosis or abrasions. Soft, nondistended, nontender. Bowel tones normoactive. BACK: No abrasions, skin openings, or ecchymosis. Spine without bony tenderness, no step offs. PELVIC: Pelvis stable, nontender to lateral compression MSK: No gross deformities. Tolerates full range of motion of extremities without tenderness. NEURO: ? GCS 15.? PERRL.? EOMI.? Fluent speech Motor- 5/5 strength symmetric bilateral upper and lower extremities including shoulder abductors/adductors, elbow flexors/extensors, wrist flexors/extensors, finger abductors/adductors, hipflexors/extensors, knee flexors/extensors, ankle dorsiflexors and planter flexors. Sensation- ?Intact to light touch and symmetric multiple dermatomes including upper and lower extremities Coordination- No dysmetria on finger to nose Gait/station: ?Normal stance.? No truncal ataxia. Steady gait with equal normal steps CRANIAL NERVES: II: Pupils equal and reactive, III, IV, : EOM intact, no gaze preference or deviation, no nystagmus. V: normal sensation in V1, V2, and V3 segments bilaterally VII: no asymmetry, no nasolabial fold flattening VIII: normal hearing to speech IX, X: normal palatal elevation, no uvular deviation XI: 5/5 head turn and 5/5 shoulder shrug bilaterally XII: midline tongue protrusion Course Vital Signs Vital signs: Vital Signs Temperature 36.6 C 12/25/23 21:58 Pulse 82 12/25/23 21:58 Respiratory Rate 18 12/25/23 21:58 Blood Pressure 134/91 H 12/25/23 21:58 Pulse Oximetry 94 12/25/23 21:58 Temperature 36.6 C 12/25/23 21:58 Temperature Source Oral 12/25/23 21:58 Pulse 82 12/25/23 21:58 Respiratory Rate 18 12/25/23 21:58 Respiratory Effort Normal, Non-Labored 12/25/23 22:01 Blood Pressure 134/91 H 12/25/23 21:58 Blood Pressure Position Sitting 12/25/23 21:58 Pulse Oximetry 94 12/25/23 21:58 Medical Decision Making 43yo M with hx of seizures, prior TBI, reportedly SEWING MACHINE ATTACHMENT TESTER shunt in place which has not been working for some time, presenting after episode of unresponsiveness. History from patient, roommate who witnessed event, EMS, and [facility] record review. Patient and remote both with developmental delay somewhat limiting history. He did feel lightheaded prior to losing consciousness, was out for an unclear period of time (most likely minutes) with no abnormal movements, and seemed at his baseline when he regained consciousness. Vital signs and physical exam reassuring, normal neurologic exam, mild left lower chest wall tenderness with no other significant traumatic findings. Not suggestive of acute coronary syndrome. C-spine clinically cleared. Unclear if syncope vs seizure; will evaluate broadly for provoking factors. Unsure what medications he takes but states is takin gthem all as prescribed. -Fingerstick blood glucose 103. -EKG SR, 1st degree heart block (unlikely to be related to presenting symptoms), no ST segment or T wave abnormalities to suggest occlusive NH. Non specific conduction delay/slighty widened QRS, no prior EKGs available for comparison. -Labs reviewed as below, CBC reassuring with no leukocytosis or anemia, CMP with no significant electrolyte abnormalities, dimer negative (would not further pursue pulmonary embolism with CT imaging), ETOH negative. Zonisamide level sent out. UA not infected. Resp swab negative. -CT head independently reviewed, no mass or large bleed on my view, agree with radiology read below. -CXR independently reviewed, no displaced fracture or focal pneumonia on my view, agree with radiology read below. On reassessment he remains well appearing, alert, and denies complaints. No events on telemetry during 2 hour ED stay. Able to med-rec, levels of his other antiepileptics sent out as well. Advised close PCP followup regarding EKG findings. Discharged home, discharge instructions and return precautions were reviewed with patient and caregiver who verbalized understanding. All questions were answered and they are in full agreement with the plan. Medical Records Medical records reviewed: Yes I reviewed the patient's medical records. Imaging Data Radiologic Study: Imaging: X-Ray Radiologist's impression: IMPRESSION: No active cardiopulmonary disease. Radiologic Study #2: Imaging: CT Scan Radiologist's impression: IMPRESSION: 1. Small amount of periventricular white matter changes. 2. No significant change compared to 09/05/2023. 3. Extensive amount of cerumen present within the external auditory canals bilaterally. 4. No evidence of an acute intracranial abnormality. Lab Data Lab results reviewed: Yes I reviewed the patient's lab results. Labs: Laboratory Tests Range/Units 12/25/23 12/25/23 22:40 23:09 WBC (4.4-10.8) 10^3/uL 7.29 RBC (4.36-5.78) 10^6/uL 5.04 Hgb (13.5-17.5) g/dL 15.7 Hct (40.0-50.0) % 44.7 MCV (80-95) fL 89 MCH (27.0-33.0) pg 31.2 MCHC (32.0-36.0) % 35.1 RDW (11.8-14.1) % 11.9 Plt Count (130-400) 10^3/uL 344 MPV (8.0-11.0) fL 8.8 Immature Gran % % 0.4 Neutrophils % % 61.6 Lymphocytes % % 28.3 Monocytes % % 9.6 Eosinophils % % 0.0 Basophils % % 0.1 Nucleated RBC % (0.0-0.3) % 0.0 Absolute Neutrophils (1.2-6.7) 10^3/uL 4.49 Absolute Lymphocytes (1.2-3.4) 10^3/uL 2.06 Absolute Monocytes (0.1-0.8) 10^3/uL 0.70 Absolute Eosinophils (0.0-0.7) 10^3/uL 0.00 Absolute Basophils (0.0-0.2) 10^3/uL 0.01 D-Dimer (<500) ng/mlFEU 359 Sodium (136-145) mmol/L 139 Potassium (3.5-5.1) mmol/L 3.5 Chloride (98-107) mmol/L 103 Carbon Dioxide (21.0-32.0) mmol/L 24.1 Anion Gap (3-11) mmol/L 11.9 H BUN (7-18) mg/dL 10 Creatinine (0.70-1.30) mg/dL 0.9 Est GFR (CKD-EPI 2020) (mL/min/1.73m2) 108.68 Glucose (74-106) mg/dL 111 H Calcium (8.5-10.1) mg/dL 8.7 Total Bilirubin (0.2-1.0) mg/dL 0.4 AST (15-37) U/L 17 ALT (16-63) U/L 29 Alkaline Phosphatase (46-116) U/L 87 Total Protein (6.4-8.2) g/dL 7.4 Albumin (3.4-5.0) g/dL 3.9 Urine Color (Yellow) Yellow Urine Clarity (Clear) Sl Cloudy Urine pH (5-8) 7.0 Ur Specific [place] (1.005-1.025) 1.020 Urine Protein (Neg-Trace) mg/dL Negative Urine Ketones (Negative) mg/dL Negative Urine Blood (Negative) Negative Urine Nitrite (Negative) Negative Urine Bilirubin (Negative) Negative Urine Urobilinogen (Up to 0.2) mg/dL 0.2 Ur Leukocyte Esterase (Negative) Negative Urine Glucose (Negative) mg/dL Negative Ethyl Alcohol (<10) mg/dL < 3.0 COVID-19 Source Nasopharynx SARS-CoV-2 (PCR) (Negative) Negative Influenza Type A (PCR) (Negative) Negative Influenza Type B (PCR) (Negative) Negative RSV (PCR) (Negative) Negative Quality:SDOH Health Related Social Needs: No Data to Display PFSH All Active Problems (Updated 12/25/23 @ 23:53 by Iqra Lubin MD) Syncope (Chronic) Neck pain (Acute) Head injury (Acute) Social History Smoking/Tobacco Use Status: Never Smoking risk assessment performed?: Yes Alcohol Intake: never Drug use: Never Substance use type: does not use Do you feel safe at home: Yes Do you feel safe in your relationship?: Yes
[2023-12-25 22:50] LABS: Abs Immature Grans 0.03 10^3/uL (0.0-0.06); Absolute Basophil Count 0.01 10^3/uL (0.0-0.2); Absolute Lymphocyte Count 2.06 10^3/uL (1.2-3.4); Absolute Neutrophil Count 4.49 10^3/uL (1.2-6.7); Basophils % 0.1 %; HCT 44.7 % (40.0-50.0); HGB 15.7 g/dL (13.5-17.5); Immature Grans % 0.4 %; Lymphocytes % 28.3 %; MCH 31.2 pg (27.0-33.0); MCHC 35.1 % (32.0-36.0); MCV 89 fL (80-95); MPV 8.8 fL (8.0-11.0); Monocytes % 9.6 %; Neutrophils % 61.6 %; Platelet Count 344 10^3/uL (130-400); RBC 5.04 10^6/uL (4.36-5.78); RDW 11.9 % (11.8-14.1); RDW-SD 38.1 fL; WBC 7.29 10^3/uL (4.4-10.8)
--- NOTE | 2023-12-25 23:00 | DI.VRAD_ITS ---
PROCEDURE INFORMATION: Exam: XR Chest Exam date and time: 12/25/2023 10:24 PM Age: 43 years old Clinical indication: Other: Possible seizure, fall; Prior surgery; Surgery date: 6+ months; Surgery type: Shunt TECHNIQUE: Imaging protocol: Radiologic exam of the chest. Views: 2 views. COMPARISON: CR XR RIBS LT W PA LAT CHEST 03/20/2022 1:44 PM FINDINGS: Tubes, catheters and devices: Ventriculoperitoneal shunt catheter overlies the right neck chest and upper abdomen. Lungs: There is no evidence of focal pulmonary consolidation. The pulmonary vasculature is normal. Pleural spaces: There is no evidence of pneumothorax. There are no pleural effusions present. Heart/Mediastinum: The cardiac silhouette is within normal limits. The mediastinum is normal. Bones/joints: The spine, sternum, ribs, and pectoral girdles show no evidence of acute abnormality Soft tissues: There are no soft tissue masses or calcifications. IMPRESSION: No active cardiopulmonary disease. Dictated and Authenticated by: Wade Zapata MD. Ordering:TERRIE Escalona MD
[2023-12-25 23:02] LABS: ALT 29 U/L (16-63); AST 17 U/L (15-37); Albumin 3.9 g/dL (3.4-5.0); Alkaline Phosphatase 87 U/L (46-116); Anion Gap 11.9 mmol/L (3-11); BUN 10 mg/dL (7-18); Bilirubin, Total 0.4 mg/dL (0.2-1.0); CO2 24.1 mmol/L (21.0-32.0); CREATININE 0.9 mg/dL (0.70-1.30); Calcium 8.7 mg/dL (8.5-10.1); Chloride 103 mmol/L (98-107); Estimated GFR 108.68 (mL/min/1.73m2); Glucose 111 mg/dL (74-106); Potassium 3.5 mmol/L (3.5-5.1); Sodium 139 mmol/L (136-145); Total Protein 7.4 g/dL (6.4-8.2)
[2023-12-25 23:03] LABS: ETHANOL BLOOD < 3.0 mg/dL (<10)
--- NOTE | 2023-12-25 23:17 | DI.VRAD_ITS ---
PROCEDURE INFORMATION: Exam: CT Head Without Contrast Exam date and time: 12/25/2023 10:20 PM Age: 43 years old Clinical indication: Other: Fall c hs, vp mobile products shunt (reportedly not functioning); Prior surgery; Surgery date: 6+ months TECHNIQUE: Imaging protocol: Computed tomography of the head without contrast. Radiation optimization: All CT scans at this facility use at least one of these dose optimization techniques: automated exposure control; mA and/or kV adjustment per patient size (includes targeted exams where dose is matched to clinical indication); or iterative reconstruction. COMPARISON: CT HEAD WO 09/05/2023 1:16 PM FINDINGS: Tubes, catheters and devices: There is a ventriculoperitoneal shunt arising from the right posterior parietal region. The catheter traverses the ventricles and terminates at the left basal ganglia. Brain: There is a focal area of low attenuation at the left basal ganglia consistent with small area of encephalomalacia. Minimal prominence of the ventricles unchanged or improved compared to 09/05/2023 Impression. Small amount of periventricular white matter changes. There is no significant cerebral atrophy present. There is no significant white matter disease present. There is no evidence of intracranial hemorrhage. There is no evidence of acute intracranial injury or other pathologic process. There is no evidence of an acute ischemic event. No evidence of an acute intracranial abnormality. Cerebral ventricles: The ventricular system is normal in caliber and are seen in the midline. Paranasal sinuses: Mucoperiosteal thickening consistent with chronic sinusitis. No air-fluid levels to suggest evidence of acute sinusitis. Mastoid air cells: The mastoid aircells are normal. Auditory system: Extensive amount of cerumen present within the external auditory canals bilaterally. Orbital cavities: The orbits are normal without evidence of fracture. There is no evidence of retro-bulbar hemorrhage. There is no evidence of globe or lens injury. Bones: The bony cranium shows no evidence of injury or other acute pathologic processes. Soft tissues: The extracranial soft tissues are normal. Other findings: No significant change compared to 09/05/2023. IMPRESSION: 1. Small amount of periventricular white matter changes. 2. No significant change compared to 09/05/2023. 3. Extensive amount of cerumen present within the external auditory canals bilaterally. 4. No evidence of an acute intracranial abnormality. Dictated and Authenticated by: Wade Zapata MD. Ordering:TERRIE Escalona MD
[2023-12-25 23:18] LABS: D-Dimer 359 ng/mlFEU (<500)
[2023-12-25 23:23] LABS: Bilirubin Negative (Negative); Blood Negative (Negative); Clarity Sl Cloudy (Clear); Glucose Negative (Negative); Ketones Negative (Negative); Leukocyte Esterase Negative (Negative); Nitrite Negative (Negative); Urobilinogen 0.2 mg/dL (Up to 0.2)
[2023-12-25 23:26] LABS: COVID-19 PCR Negative (Negative); Influenza A PCR Negative (Negative); Influenza B PCR Negative (Negative); RSV PCR Negative (Negative)
[2023-12-25 23:28] LABS: Source Nasopharynx
[2023-12-25] MEDS: Ibuprofen 400 MG TAB PO (23:58)
[2023-12-26 00:32] VITALS: BP 126/72; PULSE 72; RESP 16; O2SAT 99
[2023-12-29 20:20] LABS: Zonisamide 47 mcg/mL (10-40)
== END 2023-12-26 00:32 | disposition home or self-care (01) ==
PROVIDERS: Emergency Provider Student in an Organized Health Care Education/Training Program
DX: R55 Syncope and collapse (principal); G40.909 Epilepsy, unspecified, not intractable, without status epilepticus; Z98.2 Presence of cerebrospinal fluid drainage device
CPT/HCPCS: 36415; 80053; 80175; 80203; 82962; 87637; 93005; 99285; 70450; 71046; 80156; 80320; 81003; 85025; 85379; 93010; 99284

== ENCOUNTER 2024-04-13 16:29 | Emergency (ER) | payer MEDICARE, MEDICAID, SELFPAY ==
[2024-04-13] VITALS (7 sets, daily range): BP systolic 108–146; BP diastolic 80–100; PULSE 64–74; RESP 9–22; TEMP 36.8; O2SAT 96–99
--- NOTE | 2024-04-13 16:40 | DI.CT_ITS ---
Exam(s) CT HEAD CERVICAL SPINE WO EXAM: CT HEAD CERVICAL SPINE WO CLINICAL HISTORY: hx tbi, seizure, fall, right parietal hematoma. TECHNIQUE: Imaging Protocol: Axial computed tomography images with coronal and sagittal reformatted images were created and reviewed COMPARISON: CT CT HEAD WO from 09/05/[address] HEAD WO from 12/25/2023 FINDINGS: CT Head: Ventricles and Extra axial spaces: Normal in size and morphology for the patient's age. Hemorrhage: None. Cerebral parenchyma: There is a normal doyle-white matter differentiation. The ventricular peritoneal shunt is in stable position. Midline shift: None. Brainstem/Cerebellum: Normal. Calvarium: Normal. There is an old stable nasal bone fracture. Visualized Paranasal sinuses/Mastoids: Clear. Soft Tissues: There is soft tissue seen in the external auditory canals bilaterally which is likely c erumen but please correlate clinically. CT Cervical Spine: Bones: No acute fracture or subluxation. Age-appropriate degenerative changes are seen in the cervica l spine. There is straightening of the normal cervical lordosis which may be due to muscle spasm or patient positioning. Soft Tissues: Unremarkable. Lung Apices: Clear. IMPRESSION: 1. No acute intracranial process. 2. No acute fracture or subluxation in the cervical spine. RADIATION DOSE DELIVERED: 1,244.83mGy.cm Total DLP DATA REPOSITORY: All CT scans at this facility are submitted to the National Radiology Data Registry (NRDR) Dose Index Registry (DIR) with the [employer] (ACR). RADIATION OPTIMIZATION: All CT scans at this facility use at least one of these dose optimization te chniques: automated exposure control; mA and/or kV adjustment per patient size (includes targeted exa ms where dose is matched to clinical indication); or iterative reconstruction.
--- NOTE | 2024-04-13 16:46 | ED.GENADUL_ITS ---
Discharge Plan Disposition Patient Disposition: Home Condition: Improving Discharge Details Chief Complaint: Seizure Clinical Impression: Scalp contusion Primary Care Provider: Unknown,Unknown ED Provider: Mendez Krishnan Home Meds and New Rx's Prescriptions: No Action prazosin 1 mg Capsule 1 mg PO DAILY zonisamide 100 mg Capsule 300 mg PO TID ergocalciferol (vitamin D2) [Vitamin D2] 1,250 mcg (50,000 unit) Capsule 1,250 mcg PO DIRECTED Rx Instructions: twice a week vitamin E 400 unit Capsule 400 unit PO DAILY tinidazole 500 mg Tablet 2,000 mg PO DAILY ICaps 3,367-4-978-75 lhul-xv-nx-unit Tablet Extended Release 1 tab PO DAILY alpha lipoic acid-biotin 300 mg- 333 mcg Capsule 1 cap PO BID cannabidiol 100 mg/mL Solution 10 mg PO TID amitriptyline 50 mg tablet 50 mg PO DAILY acetylcysteine [NAC] 600 mg capsule 600 mg PO DAILY omega 3-ycx-vvx-fish oil [Fish Oil] 1,000 mg (120 mg-180 mg) capsule 1 cap PO DAILY magnesium L-lactate [Magtab] 84 mg tablet extended release 84 mg PO DAILY levomefolate calcium [L-Methylfolate] 15 mg tablet 15 mg PO DAILY lorazepam [Ativan] 1 mg tablet 1 mg PO QHS zolpidem [Ambien] 10 mg tablet 10 mg PO QHS PRN labetalol 100 mg tablet 100 mg PO ONCE carbamazepine 400 mg tablet extended release 12 hr 400 mg PO BID risperidone [Risperdal] 3 mg tablet 3 mg PO BID lamotrigine [Lamictal XR] 300 mg tablet extended release 24hr 300 mg PO DAILY Discharge Instructions Instructions: Minor Head Injury, Adult ED, Seizures, Adult ED Additional Instructions: Please follow-up with primary care physician. Please return to the emergency department for any worsening symptoms HPI General Date/Time Provider Initiated Documentation: 04/13/24 16:30 . HPI Narrative: 44-year-old male history of traumatic brain injury, possible unwitnessed seizure at home, patient endorses having seizure activity and collapsing to the ground, hitting the right side of his head, shaking motion self resolved patient unsure which antiepileptic medications he is on. Does have a history of ventricular abdominal shunt that per patient has not been functional for an extended period of time Related Data Home Medications ?Medication ?Instructions ?Recorded ?Confirmed alpha lipoic acid 300 mg-biotin 1 cap PO BID 11/16/21 04/13/24 333 mcg capsule cannabidiol 100 mg/mL oral solution 10 mg PO TID 11/16/21 04/13/24 ergocalciferol (vitamin D2) 1,250 1,250 mcg PO DIRECTED 11/16/21 04/13/24 mcg (50,000 unit) capsule (Vitamin D2) prazosin 1 mg capsule 1 mg PO DAILY 11/16/21 04/13/24 tinidazole 500 mg tablet 2,000 mg PO DAILY 11/16/21 04/13/24 [id number]-gtcscn-asikjsa-min 1 tab PO DAILY 11/16/21 04/13/24 3,300 unit-5 mg-200mg-75 unit tablet ER (ICaps) vitamin E 268 mg (400 unit) capsule 400 unit PO DAILY 11/16/21 04/13/24 zonisamide 100 mg capsule 300 mg PO TID 11/16/21 04/13/24 carbamazepine 400 mg 400 mg PO BID 12/26/23 04/13/24 tablet,extended release,12 hr labetalol 100 mg tablet 100 mg PO ONCE 12/26/23 04/13/24 lamotrigine 300 mg tablet,extended 300 mg PO DAILY 12/26/23 04/13/24 release 24 hr (Lamictal XR) risperidone 3 mg tablet (Risperdal) 3 mg PO BID 12/26/23 04/13/24 acetylcysteine 600 mg capsule (NAC) 600 mg PO DAILY 04/13/24 04/13/24 amitriptyline 50 mg tablet 50 mg PO DAILY 04/13/24 04/13/24 levomefolate calcium 15 mg tablet 15 mg PO DAILY 04/13/24 04/13/24 (L-Methylfolate) lorazepam 1 mg tablet (Ativan) 1 mg PO QHS 04/13/24 04/13/24 magnesium L-lactate 84 mg 84 mg PO DAILY 04/13/24 04/13/24 tablet,extended release (Magtab) omega 9-zrg-qhy-fish oil 1,000 mg 1 cap PO DAILY 04/13/24 04/13/24 (120 mg-180 mg) capsule (Fish Oil) zolpidem 10 mg tablet (Ambien) 10 mg PO QHS PRN 04/13/24 04/13/24 Allergies Allergy/AdvReac Type Severity Reaction Status Date / Time clonidine Allergy Other (See Unverified 04/13/24 16:36 Comment) General Stated Complaint: Seizure AJIT: 3 Exam Narrative Exam Narrative: Alert oriented interactive 2 cm raised hematoma to right parietal scalp Pupils round reactive to light no rhinorrhea no otorrhea Moist mucous membranes tongue secretions normal voice Lungs clear bilaterally no wheezes rales or rhonchi Normal heart sounds no murmurs rubs or gallops warm well-perfused extremities Abdomen soft nontender nondistended Pelvis stable, moving all extremities without deficit no signs of trauma to extremities Alert to self place and time, cranial nerves II through XII intact 5-5 strength upper lower extremities bilaterally, no ataxia Calm cooperative normal mood Course Vital Signs Vital signs: Vital Signs Temperature 36.8 C 04/13/24 16:29 Pulse 74 04/13/24 16:29 Respiratory Rate 22 04/13/24 16:29 Blood Pressure 108/80 04/13/24 16:29 Pulse Oximetry 96 04/13/24 16:29 Temperature 36.8 C 04/13/24 16:29 Temperature Source Oral 04/13/24 16:29 Pulse 74 04/13/24 16:29 Respiratory Rate 22 04/13/24 16:29 Respiratory Effort Normal 04/13/24 16:41 Respiratory Depth Normal 04/13/24 16:41 Respiratory Pattern Normal 04/13/24 16:41 Blood Pressure 108/80 04/13/24 16:29 Pulse Oximetry 96 04/13/24 16:29 Oxygen Delivery Method Room Air 04/13/24 16:29 Oxygen Flow Rate 0 04/13/24 16:29 Pain Level 10 04/13/24 16:29 Medical Decision Making 44-year-old male history of past traumatic brain injury seizure disorder presents after experiencing seizure and collapsed to the ground hitting the right side of his head, convulsive activity self resolved, patient hemodynamically stable airway breathing and circulation intact, evidence of 2 cm raised hematoma to right parietal scalp, patient does have some midline cervical tenderness without deformity crepitus or step-off, placed in c-collar, neurologically intact without deficit alert oriented, no other external signs of trauma, patient unclear of his home antiepileptic medications, med review showing patient is on carbamazepine and lamotrigine, will send levels, will obtain basic labs, CT head CT C-spine, likely seizure with collapse lower suspicion for syncope ACS PE aortic pathology infectious process or stroke. Must consider traumatic intracranial injury versus spinal injury although jose ient has no deficits. Disposition pending reassessment and imaging results 18: 26 patient rest comfortably no acute distress neurologically intact. CT head CT neck unremarkable. Patient has remained at baseline. No postictal state. No further seizure activity. Quality:SDOH Health Related Social Needs: No Data to Display PFSH All Active Problems (Updated 04/13/24 @ 18:30 by Mendez Krishnan MD) Scalp contusion (Acute) Neck pain (Acute) Head injury (Acute) Social History Smoking/Tobacco Use Status: Never Smoking risk assessment performed?: Yes Alcohol Intake: never Drug use: Never Substance use type: does not use Do you feel safe at home: Yes Do you feel safe in your relationship?: Yes
[2024-04-13] MEDS: ACETAMINOPHEN 1,000 MG/100 ML BTL 400 MG IVPB (16:54)
[2024-04-13 16:55] LABS: Abs Immature Grans 0.02 10^3/uL (0.0-0.06); Absolute Basophil Count 0.01 10^3/uL (0.0-0.2); Absolute Lymphocyte Count 2.26 10^3/uL (1.2-3.4); Absolute Neutrophil Count 3.95 10^3/uL (1.2-6.7); Basophils % 0.1 %; HGB 16.3 g/dL (13.5-17.5); Immature Grans % 0.3 %; Lymphocytes % 31.7 %; MCHC 34.7 % (32.0-36.0); MCV 89 fL (80-95); MPV 8.9 fL (8.0-11.0); Monocytes % 12.6 %; Neutrophils % 55.3 %; Platelet Count 342 10^3/uL (130-400); RBC 5.26 10^6/uL (4.36-5.78); RDW 11.7 % (11.8-14.1); RDW-SD 38.2 fL; WBC 7.14 10^3/uL (4.4-10.8)
[2024-04-13 17:10] LABS: ALT 27 U/L (16-63); AST 17 U/L (15-37); Albumin 3.7 g/dL (3.4-5.0); Alkaline Phosphatase 109 U/L (46-116); Anion Gap 9.7 mmol/L (3-11); BUN 13 mg/dL (7-18); Bilirubin, Total 0.31 mg/dL (0.2-1.0); CO2 24.3 mmol/L (21.0-32.0); Calcium 8.9 mg/dL (8.5-10.1); Chloride 103 mmol/L (98-107); Estimated GFR 95.18 (mL/min/1.73m2); Glucose 102 mg/dL (74-106); Potassium 3.8 mmol/L (3.5-5.1); Sodium 137 mmol/L (136-145); Total Protein 7.4 g/dL (6.4-8.2)
[2024-04-13 17:12] LABS: TROPONIN-I 9.7 ug/mL (4.0-12.0)
--- NOTE | 2024-04-13 17:44 | NUR.NOTE ---
Nursing Note: Patient stating that he cannot move his left extremities. Endorses sensation. Physician at bedside.
[2024-04-13] MEDS: Lidocaine 5% Patch 1 PATCH TP (18:32)
[2024-04-13] MEDS: Ketorolac 15 MG/ML VIAL IVP (18:32)
[2024-04-17 13:54] LABS: Lamotrigine 7.4 mcg/mL (3.0-15.0)
== END 2024-04-13 18:47 | disposition home or self-care (01) ==
PROVIDERS: Emergency Provider Emergency Medicine
DX: R55 Syncope and collapse (principal); G40.909 Epilepsy, unspecified, not intractable, without status epilepticus; S00.03XA Contusion of scalp, initial encounter; Z98.2 Presence of cerebrospinal fluid drainage device; W18.39XA Other fall on same level, initial encounter; Y93.89 Activity, other specified
CPT/HCPCS: 80053; 80175; 96374; 96375; 99284; 70450; 72125; 80156; 85025; J0131; J1885

== ENCOUNTER 2024-07-07 18:58 | Emergency (ER) | payer MEDICARE, MEDICAID, SELFPAY ==
[2024-07-07] VITALS (7 sets, daily range): BP systolic 126–146; BP diastolic 83–100; PULSE 68–82; RESP 11–18; TEMP 36.4; O2SAT 92–95
--- NOTE | 2024-07-07 19:46 | DI.CT_ITS ---
Exam(s) CT HEAD CERVICAL SPINE WO EXAM: CT HEAD CERVICAL SPINE WO CLINICAL HISTORY: fall, HI, hx of shunt and tbi. TECHNIQUE: Imaging Protocol: Axial computed tomography images with coronal and sagittal reformatted images were created and reviewed COMPARISON: CT CT HEAD CERVICAL SPINE WO from 04/13/2024 FINDINGS: Head CT Ventricles and Extra axial spaces: Normal in size and morphology for the patient's age. Ventricular p eritoneal shunt again noted. The tip again projects in the region of the left basal ganglia. Hemorrhage: None. Cerebral parenchyma: No evidence of mass or acute infarct. Midline shift: None. Brainstem/Cerebellum: Normal. Calvarium: Ventricular peritoneal shunt noted high entering at the high right parietal bone old renee hole are right frontal bone.. Old nasal fractures. Visualized Paranasal sinuses/Mastoids: Clear. Cerumen in the external auditory canals. Soft tissues: Unremarkable. Cervical Spine CT BONES: Vertebral body heights are maintained. Alignment is normal. There is no evidence of acute frac ture. Degenerative disc changes and facet degenerative changes are seen at C4-5 and C5-6.. SOFT TISSUES: No paraspinal hematoma. The airway appears intact. No pneumothorax is seen at the lung apices. IMPRESSION: Head CT: No acute abnormality. Stable positioning of ventricular peritoneal shunt. C-spine CT: Degenerative changes, no acute abnormality. RADIATION DOSE DELIVERED: Total DLP DATA REPOSITORY: All CT scans at this facility are submitted to the National Radiology Data Registry (NRDR) Dose Index Registry (DIR) with the [employer] (ACR). RADIATION OPTIMIZATION: All CT scans at this facility use at least one of these dose optimization te chniques: automated exposure control; mA and/or kV adjustment per patient size (includes targeted exa ms where dose is matched to clinical indication); or iterative reconstruction.
--- NOTE | 2024-07-07 20:03 | NUR.NOTE ---
Nursing Note: Pt's caregiver Mikel is at bedside. Pt took seizure meds from his own home meds. Administered by Mikel with this RN as witness.
--- NOTE | 2024-07-07 20:16 | DI.VRAD_ITS ---
PROCEDURE INFORMATION: Exam: CT Head Without Contrast Exam date and time: 07/07/2024 7:37 PM Age: 44 years old Clinical indication: Injury or trauma; Blunt trauma (contusions or hematomas); Consciousness not specified; Injury date: 07/07/24; Prior surgery; Surgery date: 6+ months; Patient HX: Fall, hi, HX of shunt and tbi TECHNIQUE: Imaging protocol: Computed tomography of the head without contrast. Radiation optimization: All CT scans at this facility use at least one of these dose optimization techniques: automated exposure control; mA and/or kV adjustment per patient size (includes targeted exams where dose is matched to clinical indication); or iterative reconstruction. COMPARISON: CT HEAD CERVICAL SPINE WO 04/13/2024 5:46 PM FINDINGS: Tubes, catheters and devices: Right posterior parietal approach [employer] shunt catheter is again seen terminating in the left basal ganglia. Small area of encephalomalacia in the left basal ganglia. Moderate periventricular white matter changes. Extensive amount of cerumen present in the external auditory canals bilaterally. Brain: See Tubes, catheters and devices finding. Cerebral ventricles: No ventriculomegaly. Paranasal sinuses: Visualized sinuses are unremarkable. No fluid levels. Mastoid air cells: Visualized mastoid air cells are well aerated. Bones: Chronic nasal bone fracture No acute fracture. Soft tissues: Unremarkable. IMPRESSION: No acute findings. PROCEDURE INFORMATION: Exam: CT Cervical Spine Without Contrast Exam date and time: 07/07/2024 7:37 PM Age: 44 years old Clinical indication: Injury or trauma; Blunt trauma (contusions or hematomas); Consciousness not specified; Injury date: 07/07/24; Prior surgery; Surgery date: 6+ months; Patient HX: Fall, hi, HX of shunt and tbi TECHNIQUE: Imaging protocol: Computed tomography of the cervical spine without contrast. Radiation optimization: All CT scans at this facility use at least one of these dose optimization techniques: automated exposure control; mA and/or kV adjustment per patient size (includes targeted exams where dose is matched to clinical indication); or iterative reconstruction. COMPARISON: CT HEAD CERVICAL SPINE WO 04/13/2024 5:46 PM FINDINGS: Bones/joints: Mild multilevel degenerative changes with disc space narrowing and osteophyte formation more prominent C4 through C7. No fracture subluxation. Lungs: Lung apices are normal. Soft tissues: Unremarkable. IMPRESSION: No acute findings. Dictated and Authenticated by: Onelia Mendoza MD. Ordering:DOROTHY Dale MD
--- NOTE | 2024-07-07 20:32 | ED.GENADUL_ITS ---
Discharge Plan Disposition Patient Disposition: Home Condition: Stable Discharge Details Clinical Impression: Head injury, Laceration of scalp Primary Care Provider: Unknown,Unknown ED Provider: Suyapa Cooper Home Meds and New Rx's Prescriptions: Continued prazosin 1 mg Capsule 1 mg PO DAILY zonisamide 100 mg Capsule 300 mg PO TID ergocalciferol (vitamin D2) [Vitamin D2] 1,250 mcg (50,000 unit) Capsule 1,250 mcg PO DIRECTED Rx Instructions: twice a week vitamin E 400 unit Capsule 400 unit PO DAILY tinidazole 500 mg Tablet 2,000 mg PO DAILY ICaps 3,072-9-927-75 ejio-rp-jf-unit Tablet Extended Release 1 tab PO DAILY alpha lipoic acid-biotin 300 mg- 333 mcg Capsule 1 cap PO BID cannabidiol 100 mg/mL Solution 10 mg PO TID amitriptyline 50 mg tablet 50 mg PO DAILY acetylcysteine [NAC] 600 mg capsule 600 mg PO DAILY omega 7-gfg-sfj-fish oil [Fish Oil] 1,000 mg (120 mg-180 mg) capsule 1 cap PO DAILY magnesium L-lactate [Magtab] 84 mg tablet extended release 84 mg PO DAILY levomefolate calcium [L-Methylfolate] 15 mg tablet 15 mg PO DAILY lorazepam [Ativan] 1 mg tablet 1 mg PO QHS zolpidem [Ambien] 10 mg tablet 10 mg PO QHS PRN labetalol 100 mg tablet 100 mg PO ONCE carbamazepine 400 mg tablet extended release 12 hr 400 mg PO BID risperidone [Risperdal] 3 mg tablet 3 mg PO BID lamotrigine [Lamictal XR] 300 mg tablet extended release 24hr 300 mg PO DAILY Discharge Instructions Instructions: Acute Pain, Adult Additional Instructions: May take ibuprofen or Tylenol as needed for discomfort I have take glue or Dermabond over the area of bleeding, you do not need to wash this area its already been cleaned and the glue will come off on its own Please return with vomiting, personality changes, or should any new concerns arise Discharge Data Discharge Date/Time-TO BE ENTERED AT DEPARTURE: 07/07/24 20:52 HPI General Date/Time Provider Initiated Documentation: 07/07/24 19:14 . HPI Narrative: This 44-year-old male with history of TBI and nonfunctioning MANDAR[employer] SPEAKING NANNY shunt presents after a fall, frequently loses balance and fell this evening hitting his head on the corner of a glass table. He did not break the table nor did he lose consciousness. He has not anticoagulated reportedly. His tetanus is reportedly up-to-date. He has is at his baseline mentation and speech per his care provider who is in room. No vomiting or headache at this time, tenderness to his cervical spine and overlying laceration on scalp reportedly. Related Data Home Medications ?Medication ?Instructions ?Recorded ?Confirmed alpha lipoic acid 300 mg-biotin 1 cap PO BID 11/16/21 04/13/24 333 mcg capsule cannabidiol 100 mg/mL oral solution 10 mg PO TID 11/16/21 04/13/24 ergocalciferol (vitamin D2) 1,250 1,250 mcg PO DIRECTED 11/16/21 04/13/24 mcg (50,000 unit) capsule (Vitamin D2) prazosin 1 mg capsule 1 mg PO DAILY 11/16/21 04/13/24 tinidazole 500 mg tablet 2,000 mg PO DAILY 11/16/21 04/13/24 mnhQ-I1-[id number]-P-iextdg-bdudbml-min 1 tab PO DAILY 11/16/21 04/13/24 3,300 unit-5 mg-200mg-75 unit tablet ER (ICaps) vitamin E 268 mg (400 unit) capsule 400 unit PO DAILY 11/16/21 04/13/24 zonisamide 100 mg capsule 300 mg PO TID 11/16/21 04/13/24 carbamazepine 400 mg 400 mg PO BID 12/26/23 04/13/24 tablet,extended release,12 hr labetalol 100 mg tablet 100 mg PO ONCE 12/26/23 04/13/24 lamotrigine 300 mg tablet,extended 300 mg PO DAILY 12/26/23 04/13/24 release 24 hr (Lamictal XR) risperidone 3 mg tablet (Risperdal) 3 mg PO BID 12/26/23 04/13/24 acetylcysteine 600 mg capsule (NAC) 600 mg PO DAILY 04/13/24 04/13/24 amitriptyline 50 mg tablet 50 mg PO DAILY 04/13/24 04/13/24 levomefolate calcium 15 mg tablet 15 mg PO DAILY 04/13/24 04/13/24 (L-Methylfolate) lorazepam 1 mg tablet (Ativan) 1 mg PO QHS 04/13/24 04/13/24 magnesium L-lactate 84 mg 84 mg PO DAILY 04/13/24 04/13/24 tablet,extended release (Magtab) omega 0-vng-fai-fish oil 1,000 mg 1 cap PO DAILY 04/13/24 04/13/24 (120 mg-180 mg) capsule (Fish Oil) zolpidem 10 mg tablet (Ambien) 10 mg PO QHS PRN 04/13/24 04/13/24 Allergies Allergy/AdvReac Type Severity Reaction Status Date / Time clonidine Allergy Other (See Unverified 07/07/24 19:05 Comment) General Stated Complaint: HeadInjury AJIT: 3 Exam Narrative Exam Narrative: Alert and oriented x 3 and at cognitive baseline reportedly, following all basic commands, small laceration to occipital region, no hemotympanum, paraspinal and cervical spine tenderness which is mild without evidence of deformity, GCS 15, ambulatory with steady gait for patient, lungs clear to auscultation, cardiac rate rhythm regular, no flank bruising, no abdominal tenderness, no additional evidence of trauma Course Vital Signs Vital signs: Vital Signs Temperature 36.4 C 07/07/24 19:00 Pulse 82 07/07/24 19:00 Respiratory Rate 18 07/07/24 19:00 Blood Pressure 146/100 H 07/07/24 19:00 Pulse Oximetry 95 07/07/24 19:00 Temperature 36.4 C 07/07/24 19:00 Temperature Source Oral 07/07/24 19:00 Pulse 82 07/07/24 19:00 Respiratory Rate 18 07/07/24 19:00 Respiratory Effort Normal, Non-Labored 07/07/24 19:07 Respiratory Depth Normal 07/07/24 19:07 Respiratory Pattern Normal 07/07/24 19:07 Blood Pressure 146/100 H 07/07/24 19:00 Blood Pressure Position Sitting 07/07/24 19:00 Pulse Oximetry 95 07/07/24 19:00 Oxygen Delivery Method Room Air 07/07/24 19:00 Oxygen Flow Rate 0 07/07/24 19:00 Medical Decision Making 44-year-old male presenting in no acute distress, TBI history, CT head and cervical spine per virtual radiology interpretation and my review does not show evidence of acute abnormality. Patient is ambulatory with steady gait and exhibiting no signs of more severe head injury at this time states no vomiting. He does have a small hematoma in the occipital region on the left side, this was cleansed and Dermabond was applied topically. Success return precautions reviewed and patient and care provider expressed understanding. Quality:SDOH Health Related Social Needs: No Data to Display PFSH All Active Problems (Updated 07/07/24 @ 20:33 by KOURTNEY Mclaughlin) Laceration of scalp (Acute) Head injury (Acute) Neck pain (Acute) Head injury (Acute) Social History Smoking/Tobacco Use Status: Never Smoking risk assessment performed?: Yes Alcohol Intake: never Drug use: Never Substance use type: does not use Do you feel safe at home: Yes Do you feel safe in your relationship?: Yes
== END 2024-07-07 20:52 | disposition home or self-care (01) ==
PROVIDERS: Emergency Provider Physician Assistant
DX: S09.8XXA Other specified injuries of head, initial encounter (principal); S01.01XA Laceration without foreign body of scalp, initial encounter; Z98.2 Presence of cerebrospinal fluid drainage device; Z87.820 Personal history of traumatic brain injury; W22.03XA Walked into furniture, initial encounter; Y93.89 Activity, other specified; Y92.018 Other place in single-family (private) house as the place of occurrence of the external cause
CPT/HCPCS: 12001; 99284; 70450; 72125

== ENCOUNTER 2024-07-21 18:47 | Emergency (ER) | payer MEDICARE, MEDICAID, SELFPAY ==
[2024-07-21] VITALS (25 sets, daily range): BP systolic 125–162; BP diastolic 84–93; PULSE 67–74; RESP 8–21; TEMP 36.8; O2SAT 93–97
[2024-07-21 18:56] LABS: Abs Immature Grans 0.03 10^3/uL (0.0-0.06); Absolute Lymphocyte Count 1.26 10^3/uL (1.2-3.4); Absolute Monocyte Count 0.59 10^3/uL (0.1-0.8); Absolute Neutrophil Count 3.86 10^3/uL (1.2-6.7); HCT 41.2 % (40.0-50.0); HGB 14.5 g/dL (13.5-17.5); Immature Grans % 0.5 %; MCH 31.9 pg (27.0-33.0); MCHC 35.2 % (32.0-36.0); MCV 91 fL (80-95); MPV 8.7 fL (8.0-11.0); Monocytes % 10.3 %; Neutrophils % 67.2 %; Platelet Count 290 10^3/uL (130-400); RBC 4.54 10^6/uL (4.36-5.78); RDW 11.6 % (11.8-14.1); RDW-SD 38.2 fL; WBC 5.74 10^3/uL (4.4-10.8)
--- NOTE | 2024-07-21 18:56 | W.ED.GENAD ---
Discharge Plan Disposition Patient Disposition: Home Condition: Stable Discharge Details Clinical Impression: Seizure Primary Care Provider: Unknown,Unknown ED Provider: Jose F Birmingham Home Meds and New Rx's Prescriptions: Continued prazosin 1 mg Capsule 1 mg PO DAILY zonisamide 100 mg Capsule 300 mg PO TID ergocalciferol (vitamin D2) [Vitamin D2] 1,250 mcg (50,000 unit) Capsule 1,250 mcg PO DIRECTED Rx Instructions: twice a week vitamin E 400 unit Capsule 400 unit PO DAILY tinidazole 500 mg Tablet 2,000 mg PO DAILY ICaps [id number] raza-cp-aq-unit Tablet Extended Release 1 tab PO DAILY alpha lipoic acid-biotin 300 mg- 333 mcg Capsule 1 cap PO BID cannabidiol 100 mg/mL Solution 10 mg PO TID amitriptyline 50 mg tablet 50 mg PO DAILY acetylcysteine [NAC] 600 mg capsule 600 mg PO DAILY omega 0-pls-vpk-fish oil [Fish Oil] 1,000 mg (120 mg-180 mg) capsule 1 cap PO DAILY magnesium L-lactate [Magtab] 84 mg tablet extended release 84 mg PO DAILY levomefolate calcium [L-Methylfolate] 15 mg tablet 15 mg PO DAILY lorazepam [Ativan] 1 mg tablet 1 mg PO QHS zolpidem [Ambien] 10 mg tablet 10 mg PO QHS PRN labetalol 100 mg tablet 100 mg PO ONCE carbamazepine 400 mg tablet extended release 12 hr 400 mg PO BID risperidone [Risperdal] 3 mg tablet 3 mg PO BID lamotrigine [Lamictal XR] 300 mg tablet extended release 24hr 300 mg PO DAILY Discharge Instructions Additional Instructions: Your blood work and CAT scan did not show any concerning findings. Follow-up with either your primary care provider or neurologist If you have multiple repeated seizures or new symptoms such as high fevers return to the emergency department for reevaluation Discharge Data Discharge Date/Time-TO BE ENTERED AT DEPARTURE: 07/21/24 22:09 HPI General Mode of arrival: EMS. Date/Time Provider Initiated Documentation: 07/21/24 18:51. Information obtained by: patient and EMS. History of Present Illness 44 year old M presents to the emergency department with the chief complaint of seizures, described as moderate, Patient started experiencing this hour(s) (1) and it has been now resolved. No relieving factors improve symptom(s), No exacerbating factors reported . Patient notes denies fever/chills. Patient did receive the following treatments prior to arrival, none Related Data Home Medications ?Medication ?Instructions ?Recorded ?Confirmed alpha lipoic acid 300 mg-biotin 1 cap PO BID 11/16/21 07/21/24 333 mcg capsule cannabidiol 100 mg/mL oral solution 10 mg PO TID 11/16/21 07/21/24 ergocalciferol (vitamin D2) 1,250 1,250 mcg PO DIRECTED 11/16/21 07/21/24 mcg (50,000 unit) capsule (Vitamin D2) prazosin 1 mg capsule 1 mg PO DAILY 11/16/21 07/21/24 tinidazole 500 mg tablet 2,000 mg PO DAILY 11/16/21 07/21/24 bxmO-X7-E-U-glgjvw-cofkdfx-min 1 tab PO DAILY 11/16/21 07/21/24 3,300 unit-5 mg-200mg-75 unit tablet ER (ICaps) vitamin E 268 mg (400 unit) capsule 400 unit PO DAILY 11/16/21 07/21/24 zonisamide 100 mg capsule 300 mg PO TID 11/16/21 07/21/24 carbamazepine 400 mg 400 mg PO BID 12/26/23 07/21/24 tablet,extended release,12 hr labetalol 100 mg tablet 100 mg PO ONCE 12/26/23 07/21/24 lamotrigine 300 mg tablet,extended 300 mg PO DAILY 12/26/23 07/21/24 release 24 hr (Lamictal XR) risperidone 3 mg tablet (Risperdal) 3 mg PO BID 12/26/23 07/21/24 acetylcysteine 600 mg capsule (NAC) 600 mg PO DAILY 04/13/24 07/21/24 amitriptyline 50 mg tablet 50 mg PO DAILY 04/13/24 07/21/24 levomefolate calcium 15 mg tablet 15 mg PO DAILY 04/13/24 07/21/24 (L-Methylfolate) lorazepam 1 mg tablet (Ativan) 1 mg PO QHS 04/13/24 07/21/24 magnesium L-lactate 84 mg 84 mg PO DAILY 04/13/24 07/21/24 tablet,extended release (Magtab) omega 5-ulq-asl-fish oil 1,000 mg 1 cap PO DAILY 04/13/24 07/21/24 (120 mg-180 mg) capsule (Fish Oil) zolpidem 10 mg tablet (Ambien) 10 mg PO QHS PRN 04/13/24 07/21/24 Allergies Allergy/AdvReac Type Severity Reaction Status Date / Time clonidine Allergy Other (See Unverified 07/21/24 18:55 Comment) General Stated Complaint: Seizure AJIT: 3 Review of Systems All systems reviewed & are unremarkable except as noted in HPI and below Constitutional Constitutional: Denies chills, Denies fever(s) and Reports headache(s) ENT Ears, Nose, Mouth, and Throat: Reports headache(s) Cardiovascular Cardiovascular: Denies chest pain and Denies dyspnea Respiratory Respiratory: Denies cough and Denies dyspnea Gastrointestinal Gastrointestinal: Denies abdominal pain, Denies nausea and Denies vomiting Musculoskeletal Musculoskeletal: Denies joint swelling Neurologic Neurologic: Reports headache(s) and Reports convulsions Exam Const General: no acute distress Orientation: alert HENID Head: normal to inspection Ears: external ears normal General nose exam: external nose normal Mouth: moist mucous membranes Eyes General: appearance normal, both eyes and all related structures Neck Neck: normal visual inspection Resp Effort & Inspection: normal respiratory effort and able to speak in complete sentences Cardio Rate: regular rate Skin General skin exam: no rashes or lesions noted Neuro General: patient alert and patient oriented x3 Cranial Nerves: PERRL and EOM intact bilaterally Speech: speech normal Extrem General: normal to inspection Psych Mental Status: mental status grossly normal Course Vital Signs Vital signs: Vital Signs Temperature 36.8 C 07/21/24 18:46 Pulse 74 07/21/24 18:46 Respiratory Rate 15 07/21/24 18:46 Blood Pressure 162/88 H 07/21/24 18:46 Temperature 36.8 C 07/21/24 18:46 Temperature Source Tympanic 07/21/24 18:46 Pulse 74 07/21/24 18:46 Respiratory Rate 15 07/21/24 18:46 Blood Pressure 162/88 H 07/21/24 18:46 Blood Pressure Position Sitting 07/21/24 18:46 Medical Decision Making 44-year-old male with a history of 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 Patient apparently has not been drinking much fluids past day for unclear reasons. He denies any abdominal pain or chest pain. He is alert and oriented on arrival and states he feels well other than a mild frontal headache. He says the pain started after the seizures. Is not the worst of his life. He denies any neck stiffness fevers vomiting. He is moving all extremities well. Given the seizure will check for electrolyte abnormalities and possibly anemia and also obtain a CT head. 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 Labs and imaging unremarkable. Given he has not had any recurrent seizures and reassuring workup I feel he is stable for discharge and can follow-up with others primary care and neurologist, return precautions given Differential Diagnosis Differential Diagnosis: Electrolyte abnormality, seizure disorder Quality:SDOH Health Related Social Needs: No Data to Display PFSH All Active Problems (Updated 07/21/24 @ 20:09 by Jose F Birmingham MD) Seizure (Acute) Laceration of scalp (Acute) Head injury (Acute) Neck pain (Acute) Head injury (Acute) Social History Smoking/Tobacco Use Status: Never Smoking risk assessment performed?: Yes Alcohol Intake: never Drug use: Never Substance use type: does not use Do you feel safe at home: Yes Do you feel safe in your relationship?: Yes
--- OUTSIDE RECORDS SUMMARY | 2024-07-21 19:00 | XMS_ITS ---
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 Role Phone BASILIO Pulido Attending Unavailable LINDA ODONNELL Primary Unavailable Results COMPREHENSIVE METABOLIC PANGeraldine Pulido (CMP) - Collect Date/Time: 05/31/2024 09:24 [facility] ID: [id number] [address], [place], [address] LOINC: 52499-1 Test Value Unit Reference Range Code Code System Flag GLUCOSE 87 mg/dL L=70 H=116 2345-7 LOINC BUN 10 mg/dL L=6 H=25 3094-0 LOINC CREATININE 0.88 mg/dL L=0.67 H=1.17 2160-0 LOINC SODIUM SERUM 136 mmol/L L=136 H=145 2951-2 LOINC POTASSIUM SERUM 4.1 mmol/L L=3.4 H=5.2 2823-3 LOINC CHLORIDE SERUM 102 mmol/L L=96 H=110 2075-0 LOINC CARBON DIOXIDE (CO2) 25 mmol/L L=22 H=34 2028-9 LOINC ANION GAP 8.9 mmol/L 31920-7 LOINC CALCIUM SERUM 8.9 mg/dL L=8.2 H=10.2 18901-0 LOINC BILIRUBIN TOTAL 0.3 mg/dL L=0.0 H=1.3 1975-2 LOINC ALK. PHOS. 98 U/L L=46 H=116 6768-6 LOINC SGOT (AST) 23 U/L L=15 H=37 1920-8 LOINC SGPT (ALT) 38 U/L L=12 H=78 1742-6 LOINC TOTAL PROTEIN 7.3 gm/dL L=6.0 H=8.0 2885-2 [facility] ALBUMIN 4.0 gm/dL L=3.4 H=5.0 1751-7 [facility] AGE 44 years eGFR (non-Afr.Amer.) 94 mL/min 51785-6 [facility] eGFR (Afr-Canadian) 114 mL/min 21910-7 [facility] Social History Type Status Start Date End Date Code Code Syst em Smoking History Never smoker (Never Smoked) 047943884 SNOMED CT Sex Male Medications Medication Start Date End Date Route Frequency Dose Code Code System Medication Instructions Home Meds AMITRIPTYLINE HCL 50 MG ORAL TABLET 11/20/2018 Unknown ORAL BEDTIME 50 RxNorm TAKE 50 ORAL BEDTIME CARBAMAZEPINE ER 400 MG TABLET 12/15/2018 Unknown ORAL TWICE A DAY 400 MILLIGRAMS RxNorm TAKE 400 MILLIGRAMS ORAL TWICE A DAY CBD 12/15/2018 Unknown ORAL THREE TIMES A DAY 0.7 MILLILITERS RxNorm TAKE 0.7 MILLILITERS ORAL THREE TIMES A DAY DOCUSIL 100 MG SOFTGEL 12/15/2018 Unknown ORAL TWICE A DAY 100 RxNorm TAKE 100 ORAL TWICE A DAY LORazepam 1MG Oral Tablet 12/15/2018 Unknown ORAL BEDTIME 1 MILLIGRAMS 583074 RxNorm TAKE 1 MILLIGRAMS ORAL BEDTIME NAC 600 MG CAPSULE 12/15/2018 Unknown ORAL TWICE A DAY 600 MILLIGRAMS RxNorm TAKE 600 MILLIGRAMS ORAL TWICE A DAY RISPERDAL 3MG ORAL TABLET 12/15/2018 Unknown ORAL TWICE A DAY 3 MILLIGRAMS RxNorm TAKE 3 MILLIGRAMS ORAL TWICE A DAY VITAMIN D2 50,000 UNIT TABLET 12/15/2018 Unknown ORAL WEEKLY 1 RxNorm TAKE 1 ORAL WEEKLY Zolpidem Tartrate 10MG Oral Tablet 12/15/2018 Unknown ORAL BEDTIME 10 MILLIGRAMS 950958 RxNorm TAKE 10 MILLIGRAMS ORAL BEDTIME Fish Oil 1000MG Oral Capsule, Liquid Filled 01/09/2019 Unknown ORAL DAILY 1000 MILLIGRAMS 739694 RxNorm TAKE 1000 MILLIGRAMS ORAL DAILY L-Methylfolate 15MG Oral Tablet 01/09/2019 Unknown ORAL BEDTIME 15 MILLIGRAMS 6455489 RxNorm TAKE 15 MILLIGRAMS ORAL BEDTIME Labetalol HCl 200MG Oral Tablet 01/09/2019 Unknown ORAL TWICE A DAY 0.5 TABLET 274861 RxNorm TAKE 0.5 TABLET ORAL TWICE A DAY Mag-Tab SR 84 MG Oral Tablet, Extended Release 01/09/2019 Unknown ORAL TWICE A DAY 84 MG 067741 RxNorm TAKE 84 MG ORAL TWICE A DAY Vitamin B2 100 MG Oral Tablet 01/09/2019 Unknown ORAL TWICE A DAY 200 MG 105365 RxNorm TAKE 200 MG ORAL TWICE A DAY Zonisamide 100MG Oral Capsule 01/09/2019 Unknown ORAL THREE TIMES A DAY 200 MILLIGRAMS 172444 RxNorm TAKE 200 MILLIGRAMS ORAL THREE TIMES A DAY lamoTRIgine 200MG Oral Tablet 01/09/2019 Unknown ORAL TWICE A DAY 1 TABLET 381553 RxNorm TAKE 1 TABLET ORAL TWICE A DAY Assessment You had the following problems:ATAXIAHISTORY OF FALLINGBRAIN TRAUMASEIZURE DISORDER Hospital Discharge Instructions Should you have any questions prior to discharge, please contact a member of your healthcare team. If you have left the hospital and have any questions, please contact your primary care physician. Reason For Referral No Data Found Problems Problem Start Date Resolved Date Status Code Code System ATAXIA active 18489347 SNOMED-CT HISTORY OF FALLING active 019071308 S NOMED-CT BRAIN TRAUMA active 443196201 SNOMED- CT SEIZURE DISORDER active 590023553 SNO MED-CT Allergies and Adverse Reactions Allergy Substance Reaction Severity Start Date Concern Status Co de Code System No Known Allergies Moderate Active Plan of Treatment No Data Found Encounters Encounter Diagnosis Start Date Code Code Sys tem Hyperlipidemia 05/31/2024 33654971 SNOMED-CT Personal Care Team Section Performer Name Performer Role Active Date Inactive Da viviana
[2024-07-21 19:11] LABS: ALT 24 U/L (16-63); AST 16 U/L (15-37); Albumin 3.4 g/dL (3.4-5.0); Alkaline Phosphatase 92 U/L (46-116); Anion Gap 8.1 mmol/L (3-11); BUN 12 mg/dL (7-18); Bilirubin, Total 0.13 mg/dL (0.2-1.0); CO2 26.9 mmol/L (21.0-32.0); CREATININE 1.1 mg/dL (0.70-1.30); Chloride 105 mmol/L (98-107); Estimated GFR 84.89 (mL/min/1.73m2); Glucose 109 mg/dL (74-106); Magnesium 2.3 mg/dL (1.8-2.4); Sodium 140 mmol/L (136-145); Total Protein 6.7 g/dL (6.4-8.2)
--- NOTE | 2024-07-21 19:26 | NUR.NOTE ---
Nursing Note: eb rojas [phone] Brandie [phone]
--- NOTE | 2024-07-21 19:35 | DI.CT_ITS ---
Exam(s) CT HEAD WO EXAM: CT HEAD WO CLINICAL HISTORY: headache, seizure. TECHNIQUE: Imaging Protocol: Axial computed tomography images with coronal and sagittal reformatted images were created and reviewed COMPARISON: CT CT HEAD CERVICAL SPINE WO from 07/07/2024 FINDINGS: Patient has a ventriculoperitoneal shunt which is unchanged in position. It enters through the poste rior right parietal bone. The tip is located in the left basal ganglia. Ventricles and Extra axial spaces: Normal in size and morphology for the patient's age. Hemorrhage: None. Cerebral parenchyma: No evidence of an acute territorial infarct. No acute mass effect. Midline shift: None. Brainstem/Cerebellum: Normal. Calvarium: Normal. Visualized Paranasal sinuses/Mastoids: There is mucosal thickening in a few of the ethmoid air cells. The paranasal sinuses and mastoid air cells are otherwise unremarkable. Soft Tissues: Unremarkable. IMPRESSION: No acute intracranial process. RADIATION DOSE DELIVERED: 819.74mGy.cm Total DLP DATA REPOSITORY: All CT scans at this facility are submitted to the National Radiology Data Registry (NRDR) Dose Index Registry (DIR) with the [employer] (ACR). RADIATION OPTIMIZATION: All CT scans at this facility use at least one of these dose optimization te chniques: automated exposure control; mA and/or kV adjustment per patient size (includes targeted exa ms where dose is matched to clinical indication); or iterative reconstruction.
[2024-07-21 19:39] LABS: COVID-19 PCR Negative (Negative); Influenza A PCR Negative (Negative); Influenza B PCR Negative (Negative); RSV PCR Negative (Negative)
[2024-07-21 19:40] LABS: Source NASOPHARYNX
[2024-07-21 20:08] LABS: Bilirubin Negative (Negative); Blood Negative (Negative); Clarity Clear (Clear); Glucose Negative (Negative); Ketones Negative (Negative); Leukocyte Esterase Negative (Negative); Nitrite Negative (Negative); Urobilinogen 0.2 mg/dL (Up to 0.2)
[2024-07-21] MEDS: Acetaminophen 500 MG TAB 1000 MG PO (20:08)
--- NOTE | 2024-07-21 21:14 | DI.VRAD_ITS ---
PROCEDURE INFORMATION: Exam: CT Head Without Contrast Exam date and time: 07/21/2024 7:31 PM Age: 44 years old Clinical indication: Pain; Headache not specified; Prior surgery; Surgery date: 6+ months; Patient HX: Headache, seizure. HX of shunt and tbi TECHNIQUE: Imaging protocol: Computed tomography of the head without contrast. Radiation optimization: All CT scans at this facility use at least one of these dose optimization techniques: automated exposure control; mA and/or kV adjustment per patient size (includes targeted exams where dose is matched to clinical indication); or iterative reconstruction. 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 Brain: Persistent, unchanged left basal ganglia encephalomalacia. Cerebral ventricles: No ventriculomegaly. Paranasal sinuses: Mild mucosal thickening of the ethmoid air cells. No fluid levels. Mastoid air cells: Visualized mastoid air cells are well aerated. Bones: Unremarkable. No acute fracture. Soft tissues: Unremarkable. IMPRESSION: No acute findings Dictated and Authenticated by: Onelia Mendoza MD. Ordering:FAITH Kohler MD
== END 2024-07-21 22:09 | disposition home or self-care (01) ==
PROVIDERS: Emergency Provider Emergency Medicine
DX: R56.9 Unspecified convulsions (principal)
CPT/HCPCS: 80053; 87637; 99284; 70450; 81003; 83735; 85025